=== PATIENT | female | born 1955 | race African-American/Black ===

== ENCOUNTER 2017-09-03 03:28 | Emergency (ER) | payer MEDICAID ==
[~2017-09-03] VITALS: Ht 162.6 cm; Wt 59.0 kg
[2017-09-03 03:42] VITALS: BP 127/77
[2017-09-03] MEDS ORDERED: Tylenol #3 tab (300mg/30mg) PO ONE (03:45)
[2017-09-03] MEDS ORDERED: IBUPROFEN600 MG ORAL (04:59)
[2017-09-03 05:30] VITALS: BP 130/78
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
[2017-09-03 05:50] VITALS: BP 130/78
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
== END 2017-09-03 05:50 | disposition home or self-care (01) ==
LOC: EDBD 03:28 → EMR 03:40
DX: R51 Headache (principal); M25.512 Pain in left shoulder; M25.532 Pain in left wrist; R07.9 Chest pain, unspecified; Y04.2XXA Assault by strike against or bumped into by another person, initial encounter; Y92.9 Unspecified place or not applicable; I10 Essential (primary) hypertension
CPT/HCPCS: 70450; 71045; 99284

== ENCOUNTER 2019-01-27 01:50 | Emergency (ER) | payer SELFPAY ==
[~2019-01-27] VITALS: Ht 167.6 cm; Wt 59.0 kg
[~2019-01-27 01:50] MED LIST: IBUPROFEN600 MG ORAL
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
[2019-01-27 02:22] VITALS: BP 118/68
--- NOTE | 2019-01-27 02:22 | NUR ---
ED Nurse Note: X ray at bedside.
--- NOTE | 2019-01-27 02:37 | NUR ---
ED Nurse Note: Snack food provided.
[2019-01-27 03:03] VITALS: BP 118/68
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
--- NOTE | 2019-01-27 12:15 | Diagnostic Imaging Report ---
Indication: Right leg pain after falling Technique: 2 views of the left tibia and fibula Comparison: none Findings: No acute fractures. No dislocations. No radiopaque foreign body. Impression: No acute process
--- NOTE | 2019-01-27 12:16 | Diagnostic Imaging Report ---
Indications: Right leg pain after falling Technique: Two views of the right femur Comparison: None Findings: No acute fractures. No dislocations. Joint spaces are preserved. Impression: Negative
[2019-01-27] MEDS ORDERED: UNOBMED (12:50)
== END 2019-01-27 03:19 | disposition home or self-care (01) ==
LOC: EDBD 01:50 → EMR 02:08
DX: M25.511 Pain in right shoulder (principal); M79.604 Pain in right leg; I10 Essential (primary) hypertension; Y04.8XXA Assault by other bodily force, initial encounter
CPT/HCPCS: 99284

== ENCOUNTER 2019-01-27 12:38 | Inpatient (IN) | payer MEDICAID ==
[~2019-01-27] VITALS: Ht 165.1 cm; Wt 62.2 kg
[2019-01-27 12:40] VITALS: BP 135/71
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
[2019-01-27] MEDS ORDERED: UNOBMED (12:50)
--- NOTE | 2019-01-27 13:10 | NUR ---
ED Nurse Note: labs sent and 22g IV inserted.
--- NOTE | 2019-01-27 13:18 | NUR ---
ED Nurse Note: pt sent for CT head.
[2019-01-27 13:50] LABS: ANION GAP 15 mmol/L (5-15); BLOOD UREA NITROGEN 13 mg/dL (7-18); CALCIUM 9.3 MG/DL (8.5-10.1); CARBON DIOXIDE 21 MMOL/L (21-32); CHLORIDE 100 MMOL/L (98-107); CREATININE 1.1 MG/DL (0.55-1.30); POTASSIUM 3.8 MMOL/L (3.5-5.1); SODIUM 136 MMOL/L (136-145)
[2019-01-27 13:54] LABS: BASOPHILS % (AUTO) 0.5 % (0.0-2.0); EOSINOPHILS % (AUTO) 0.4 % (0.0-3.0); HEMATOCRIT 38.5 % (37.0-47.0); HEMOGLOBIN 12.5 G/DL (12.0-16.0); LYMPHOCYTES % (AUTO) 37.5 % (20.0-45.0); MEAN CORPUSCULAR VOLUME 93 FL (80-99); MONOCYTES % (AUTO) 7.4 % (1.0-10.0); NEUTROPHILS % (AUTO) 54.2 % (45.0-75.0); PLATELET COUNT 278 K/UL (150-450); RED BLOOD COUNT 4.12 M/UL (4.20-5.40); RED CELL DISTRIBUTION WIDTH 13.9 % (11.6-14.8); WHITE BLOOD COUNT 4.8 K/UL (4.8-10.8)
[2019-01-27 13:56] VITALS: BP 133/73
--- NOTE | 2019-01-27 13:58 | Diagnostic Imaging Report ---
Indications: Altered mental status Technique: Spiral acquisitions obtained through the brain. Angled axial and coronal 5 x 5 mm slices were reconstructed. Total dose length product 1245.89 mGycm. CTDI vol(s) 70.38 mGy. Dose reduction achieved using automated exposure control Comparison: 09/03/2017 Findings: Again demonstrated is age-related enlargement of the ventricles and extra-axial CSF spaces. No acute intracranial hemorrhage or edema, mass effect, nor midline shift.. Normal petty-white differentiation. Visualized orbits are unremarkable. The mastoids are clear. Sinuses are clear. The calvarium is intact. No significant interim change Impression: Age-related volume loss Negative for acute intracranial bleed or mass effect The CT scanner at [facility] is accredited by the [employer] and the scans are performed using protocols designed to limit radiation exposure to as low as reasonably achievable to attain images of sufficient resolution adequate for diagnostic evaluation.
[2019-01-27 14:02] LABS: ALANINE AMINOTRANSFERASE 16 U/L (12-78); ALBUMIN 3.7 G/DL (3.4-5.0); ALBUMIN/GLOBULIN RATIO 0.8 (1.0-2.7); ALKALINE PHOSPHATASE 99 U/L (46-116); ASPARTATE AMINO TRANSFERASE 12 U/L (15-37); BILIRUBIN,TOTAL 0.4 MG/DL (0.2-1.0); CKMB 0.7 NG/ML (0.0-3.6); CREATINE KINASE 55 U/L (26-308)
[2019-01-27] MEDS ORDERED: levETIRAcetam 1,000mg/NS100ml 100 ML IVPB ONE (14:15)
[2019-01-27] MEDS ORDERED: LORazepam Inj 2mg/ml 1ml IV ONE (14:15)
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
[2019-01-27 15:59] VITALS: BP 139/76
--- NOTE | 2019-01-27 16:09 | NUR ---
ED Nurse Note: telephone report given to ELAINE Ro
[2019-01-27 16:30] VITALS: BP 144/65
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
--- NOTE | 2019-01-27 16:31 | Diagnostic Imaging Report ---
Indication: Shortness of breath Technique: One view of the chest Comparison: 09/03/2017 Findings: There is some atelectasis at the right lateral lung base. Lungs and pleural spaces are otherwise clear. The heart size is upper limits of normal. The aorta is tortuous and ectatic Impression: No acute process This agrees with the preliminary interpretation provided by the emergency room physician
--- NOTE | 2019-01-27 17:56 | NUR ---
NURSE NOTES: Received admission order from Dr. Sheldon. Will carry out the order now.
[2019-01-27] MEDS ORDERED: Acetaminophen 500mg (ES) tab ORAL PRN (18:00)
--- NOTE | 2019-01-27 18:28 | NUR ---
NURSE NOTES: The patient is stable without acute distress or shortness of breath. Will continue plan of care.
--- NOTE | 2019-01-27 18:49 | NUR ---
NURSE NOTES: Notified Dr. Sheldon regarding bradycardia to 42. The patient is sleeping without acute distress or shortness of breath. Will carry out the order as soon as receives it. Will continue plan of care.
--- NOTE | 2019-01-27 19:03 | NUR ---
NURSE NOTES: Notified Dr. Benson regarding bradycardia without symptom. Will carry out the order as soon as receives it. Will continue plan of care.
--- NOTE | 2019-01-27 19:24 | NUR ---
HAND-OFF: Report given to ELAINE Villalta. The patient is resting on the bed without acute distress or shortness of breath. The patient's bed in the lowest position, call light in reach, and fall, aspiration, and seizure precaution reinforced. IV site on right hand 22G intact and patent. Endorsed plan of care.
[2019-01-27 20:00] VITALS: BP 144/75
[2019-01-28] VITALS: BP 138/66
--- NOTE | 2019-01-28 01:45 | History and Physical Report ---
DATE OF ADMISSION: 01/27/2019 HISTORY OF PRESENT ILLNESS: The patient has bradycardia, recurrent seizures, and altered, postictal. Cannot get any history from this patient because he is postictal. PAST MEDICAL HISTORY: Apparently, the patient has a history of seizures. Unable to obtain past medical history. PAST SURGICAL HISTORY: Unable to obtain. MEDICATIONS: Unable to obtain. ALLERGIES: No known allergies. SOCIAL HISTORY: Unable to obtain. FAMILY HISTORY: Unable to obtain. REVIEW OF SYSTEMS: Unable to obtain. PHYSICAL EXAMINATION: VITAL SIGNS: Temperature is 98.2, pulse 76, blood pressure 139/72. HEENT: PERRLA. NECK: Supple. No lymphadenopathy. CHEST: Clear to auscultation. CARDIOVASCULAR: Regular rate and rhythm. No murmurs or extra sounds. GASTROINTESTINAL: Soft, nontender, and nondistended. No organomegaly. EXTREMITIES: No edema. Moves all four extremities. NEUROLOGIC: Cannot get the neurological exam, but grimaces to pain. The patient is postictal. Cannot get any history whatsoever at this point. LABORATORY DATA: WBC of 4.8, hemoglobin 12.5, and platelets of 278,000. Sodium 137, potassium of 3.8, BUN of 13, creatinine of 1.1, and glucose of 86. ASSESSMENT AND PLAN: 1. Altered mental status, postictal. 2. Recurrent seizure. 3. Bradycardia. I have asked Dr. Ring, Dr. Long, and Dr. Benson to see the patient for the dehydration and bradycardia as well as for the management of the recurrent seizures. Jairo Sheldon M.D. DR: KANU JOB#: [id number] CC:
[2019-01-28 04:00] VITALS: BP 142/69
[2019-01-28 07:16] LABS: BASOPHILS % (AUTO) 0.3 % (0.0-2.0); EOSINOPHILS % (AUTO) 0.5 % (0.0-3.0); HEMATOCRIT 34.5 % (37.0-47.0); HEMOGLOBIN 11.4 G/DL (12.0-16.0); LYMPHOCYTES % (AUTO) 32.2 % (20.0-45.0); MEAN CORPUSCULAR VOLUME 93 FL (80-99); MONOCYTES % (AUTO) 8.4 % (1.0-10.0); NEUTROPHILS % (AUTO) 58.6 % (45.0-75.0); PLATELET COUNT 231 K/UL (150-450); RED BLOOD COUNT 3.69 M/UL (4.20-5.40); RED CELL DISTRIBUTION WIDTH 13.9 % (11.6-14.8); WHITE BLOOD COUNT 4.4 K/UL (4.8-10.8)
--- NOTE | 2019-01-28 07:23 | NUR ---
HAND-OFF: Report given to Drea HENRY.
--- NOTE | 2019-01-28 07:49 | NUR ---
NURSE NOTES: Received patient from [facility]. Patient is awake and alert resting comfortably in bed. NO c/o pain or discomfort. Oxygen at 2 L/min via NC. denies SOB O
--- NOTE | 2019-01-28 07:52 | NUR ---
NURSE NOTES: Received patient from [facility]. Patient is awake and alert resting comfortably in bed. NO c/o pain or discomfort. Oxygen at 2 L/min via NC. denies SOB. child monitor in place Sinus lakshmi to Sinus Rhythm with rate of 42-66 Bpm. IVF 1/2 NS @ 65 ML/HR via . Fall and seizure precautions in place. Sire rails padded. SRX2 up for safety. Bed locked to lowest position. Alarm activated. Call frias within patients reach. will follow.
[2019-01-28 07:56] LABS: ALANINE AMINOTRANSFERASE 11 U/L (12-78); ALBUMIN 3.4 G/DL (3.4-5.0); ALBUMIN/GLOBULIN RATIO 0.9 (1.0-2.7); ALKALINE PHOSPHATASE 82 U/L (46-116); ANION GAP 9 mmol/L (5-15); ASPARTATE AMINO TRANSFERASE 10 U/L (15-37); BILIRUBIN,TOTAL 0.8 MG/DL (0.2-1.0); BLOOD UREA NITROGEN 9 mg/dL (7-18); CALCIUM 9.4 MG/DL (8.5-10.1); CARBON DIOXIDE 25 MMOL/L (21-32); CHLORIDE 107 MMOL/L (98-107); CREATININE 0.9 MG/DL (0.55-1.30); POTASSIUM 4.1 MMOL/L (3.5-5.1); SODIUM 141 MMOL/L (136-145)
[2019-01-28 08:24] VITALS: BP 160/87
--- NOTE | 2019-01-28 10:22 | Consultation ---
History of Present Illness General Chief Complaint: Seizure Present Illness Allergies: Coded Allergies: No Known Allergies (Unverified , 09/03/17) Medication History Scheduled PRN Ibuprofen* (Motrin*), 600 MG ORAL Q8H PRN for For Pain Miscellaneous Medications Unable to Obtain Medications (Unable To Obtain Meds), (Reported) Patient History Healthcare decision maker Resuscitation status Advanced Directive on File Physical Exam Last 24 Hour Vital Signs Date Time Temp Pulse Resp B/P (MAP) Pulse Ox O2 Delivery O2 Flow Rate FiO2 01/28/19 08:24 98.2 57 24 160/87 (111) 100 01/28/19 08:00 51 01/28/19 04:00 98.1 67 18 142/69 (93) 98 01/28/19 04:00 43 01/28/19 00:00 98.6 61 18 138/66 (90) 97 01/28/19 00:00 49 01/27/19 21:00 Nasal Cannula 2.0 01/27/19 20:00 54 01/27/19 20:00 97.7 54 16 144/75 (98) 100 54 01/27/19 18:07 Nasal Cannula 2.0 01/27/19 17:09 65 01/27/19 16:40 98.7 91 18 147/76 98 Nasal Cannula 2.0 01/27/19 16:30 97.5 74 20 144/65 (91) 100 74 01/27/19 15:59 98.2 76 21 139/76 100 01/27/19 13:56 98.2 78 17 133/73 99 Room Air 01/27/19 12:40 102 18 Room Air 01/27/19 12:40 98.5 91 18 135/71 99 Room Air 01/27/19 12:35 98.2 109 18 142/64 (90) 99 Room Air Intake and Output 01/27/19 01/28/19 19:00 07:00 Intake Total 1100 ml Balance 1100 ml Intake Oral 0 ml IV Total 1100 ml # Voids 5 Laboratory Tests Test 01/27/19 13:15 01/28/19 06:10 White Blood Count 4.8 K/UL (4.8-10.8) 4.4 K/UL (4.8-10.8) L Red Blood Count 4.12 M/UL (4.20-5.40) L 3.69 M/UL (4.20-5.40) L Hemoglobin 12.5 G/DL (12.0-16.0) 11.4 G/DL (12.0-16.0) L Hematocrit 38.5 % (37.0-47.0) 34.5 % (37.0-47.0) L Mean Corpuscular Volume 93 FL (80-99) 93 FL (80-99) Mean Corpuscular Hemoglobin 30.4 PG (27.0-31.0) 30.7 PG (27.0-31.0) Mean Corpuscular Hemoglobin Concent 32.6 G/DL (32.0-36.0) 32.9 G/DL (32.0-36.0) Red Cell Distribution Width 13.9 % (11.6-14.8) 13.9 % (11.6-14.8) Platelet Count 278 K/UL (150-450) 231 K/UL (150-450) Mean Platelet Volume 6.3 FL (6.5-10.1) L 6.5 FL (6.5-10.1) Neutrophils (%) (Auto) 54.2 % (45.0-75.0) 58.6 % (45.0-75.0) Lymphocytes (%) (Auto) 37.5 % (20.0-45.0) 32.2 % (20.0-45.0) Monocytes (%) (Auto) 7.4 % (1.0-10.0) 8.4 % (1.0-10.0) Eosinophils (%) (Auto) 0.4 % (0.0-3.0) 0.5 % (0.0-3.0) Basophils (%) (Auto) 0.5 % (0.0-2.0) 0.3 % (0.0-2.0) Sodium Level 136 MMOL/L (136-145) 141 MMOL/L (136-145) Potassium Level 3.8 MMOL/L (3.5-5.1) 4.1 MMOL/L (3.5-5.1) Chloride Level 100 MMOL/L (98-107) 107 MMOL/L (98-107) Carbon Dioxide Level 21 MMOL/L (21-32) 25 MMOL/L (21-32) Anion Gap 15 mmol/L (5-15) 9 mmol/L (5-15) Blood Urea Nitrogen 13 mg/dL (7-18) 9 mg/dL (7-18) Creatinine 1.1 MG/DL (0.55-1.30) 0.9 MG/DL (0.55-1.30) Estimat Glomerular Filtration Rate > 60 mL/min (>60) > 60 mL/min (>60) Glucose Level 86 MG/DL (74-106) 91 MG/DL (74-106) Calcium Level 9.3 MG/DL (8.5-10.1) 9.4 MG/DL (8.5-10.1) Total Bilirubin 0.4 MG/DL (0.2-1.0) 0.8 MG/DL (0.2-1.0) Aspartate Amino Transf (AST/SGOT) 12 U/L (15-37) L 10 U/L (15-37) L Alanine Aminotransferase (ALT/SGPT) 16 U/L (12-78) 11 U/L (12-78) L Alkaline Phosphatase 99 U/L (46-116) 82 U/L (46-116) Total Creatine Kinase 55 U/L (26-308) Creatine Kinase MB 0.7 NG/ML (0.0-3.6) Creatine Kinase MB Relative Index 1.2 Troponin I 0.000 ng/mL (0.000-0.056) 0.000 ng/mL (0.000-0.056) Pro-B-Type Natriuretic Peptide 103 pg/mL (0-125) Total Protein 8.3 G/DL (6.4-8.2) H 7.3 G/DL (6.4-8.2) Albumin 3.7 G/DL (3.4-5.0) 3.4 G/DL (3.4-5.0) Globulin 4.6 g/dL 3.9 g/dL Albumin/Globulin Ratio 0.8 (1.0-2.7) L 0.9 (1.0-2.7) L Lipase 76 U/L (73-393) Phenytoin (Dilantin) Level < 0.5 ug/mL (10-20) L Valproic Acid (Depakene) Level < 3 MCG/ML (50-100) L Thyroid Stimulating Hormone (TSH) 0.348 uiU/mL (0.358-3.740) Free Thyroxine 0.95 NG/DL (0.76-1.46) Height (Feet): 5 Height (Inches): 5.00 Weight (Pounds): 137 Medications Current Medications Medications (Trade) Dose Ordered Sig/Boris Route PRN Reason Start Time Stop Time Status Last Admin Dose Admin Acetaminophen (Tylenol) 500 mg Q4H PRN ORAL Mild Pain/Temp > 100.5 01/27/19 18:00 02/26/19 17:59 Sodium Chloride 1,000 ml @ 65 mls/hr [id number] IV 01/27/19 18:00 02/26/19 17:59 01/28/19 08:28 Assessment/Plan Assessment/Plan: Hematology Consultation Chief Complaint: Seizure RFC: Leukopenia and anemia eval DOS: 01/28/19 REQ MD: Tata Campos HPI 63y old male history of seizures. Patient apparently had a seizure yesterday. Patient was found by bystanders on the street and the paramedics was contacted. They brought the patient here for further evaluation. Patient appeared to be fairly somnolent but maintaining her airway. She is unable to provide much history other than that she has history of seizures. While patient was in the emergency department she had another episode of seizures. No other complaints are noted. Symptoms noted to be severe. No other associated signs symptoms no other modifying factors no other complaints. heme consulted for low wbc and anemia eval, was called by Dr. Campos. Coded Allergies: No Known Allergies (Unverified , 09/03/17) Patient History Past Medical History: DM, HTN, asthma Past Surgical History: none Pertinent Family History: none Social History: Denies: smoking, alcohol use, drug use Reviewed Nursing Documentation: PMH: Agreed; PSxH: Agreed Hx Hypertension: Yes Hx Asthma: Yes Hx Diabetes: Yes Review of Systems All Other Systems: negative except mentioned in HPI Physical Exam Vital Signs Gen: alert, moderate distress ENT: normal ENT inspection, dry membranes Neck: normal inspection, full range of motion, supple Pulm: normal inspection, lungs clear, normal breath sounds, no respiratory distress, no retraction, no wheezing CV: regular rate, rhythm, no edema GI: normal inspection, normal bowel sounds, non tender, soft Msk: normal inspection, back normal, normal range of motion Neuro: alert Labs: noted Imaging: noted Assessment and Recs: # Leukopenia with a wbc that is currently 4-5 range --> baseline is unknown, reviewed prior admissions, none noted --> wbc 4.8-->4.4 --> consider use of neupogen and anc goal >1500 --> meds have been reviewed, antiepileptics, okay to start --> monitor wbc, neuropenic precuations if anc <1500 # Anemia of chronic disease --> labs have been reviewed --> 12-->11 range --> w/u as needed if hgb lower # Status epilepticus/LOC --> as per neuro eval --> neuro eval # BradyCardia --> as per cards # Psych disorder --> per psych Time of note does not necessarily correspond to when patient was seen. Greatly appreciate consultation. Zoran Tong MD Jan 28, 2019 10:22
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
--- NOTE | 2019-01-28 11:30 | NUR ---
NURSE NOTES: Dr. Sheldon made aware patient has no PRN ativan ordered. stated to contact Dr. Ring for orders. Call out to Dr. Ring awaiting call back. will follow.
--- NOTE | 2019-01-28 12:08 | Diagnostic Imaging Report ---
Indication: Abdominal pain Technique: Bowles-scale and duplex images of the upper abdomen were obtained Comparison: none Findings: Gallbladder is unremarkable, without stones, wall thickening, nor pericholecystic fluid. Sonographic Gaston's sign is negative. Common bile duct measures 3 mm in diameter. No intrahepatic biliary ductal dilatation. Liver demonstrates normal echogenicity, no focal abnormality. Portal vein and hepatic veins are patent. Pancreas is unremarkable. Spleen is unremarkable. Left kidney measures 9.1 cm in length. Right kidney measures 9.6 cm length. Both kidneys demonstrate normal echogenicity. There is no hydronephrosis. No focal abnormality . Abdominal aorta is partially obscured by bowel gas, visualized portions are non-aneurysmal . Impression: Negative Note inability to visualize portions of the abdominal aorta
[2019-01-28] MEDS ORDERED: LORazepam Inj 2mg/ml 1ml IV PRN (12:30)
--- NOTE | 2019-01-28 12:30 | NUR ---
NURSE NOTES: received call back from Dr. Ring. Order received and carried out. said he will be in to see patient later today. Will follow
[2019-01-28 12:36] VITALS: BP 143/75
--- NOTE | 2019-01-28 14:51 | NUR ---
CASE MANAGEMENT:REVIEW 63 YR OLD FEMALE BIBA FROM STREET CC: SEIZURE SI: SEIZURE. AMS 98.2 109 18 142/64 99% ON RA IS: 1L NS BOLUS X1 IV KEPPRA IV ATIVAN CT HEAD CHEST XRAY : TO TELEMETRY INTERQUAL CRITERIA MET
[2019-01-28 16:50] VITALS: BP 139/66
--- NOTE | 2019-01-28 17:30 | Cardiac Electrophysiology PN ---
Subjective Subjective [id number] Objective Last 24 Hour Vital Signs Date Time Temp Pulse Resp B/P (MAP) Pulse Ox O2 Delivery O2 Flow Rate FiO2 01/28/19 16:50 98.1 60 22 139/66 (90) 97 01/28/19 12:36 98.1 44 20 143/75 (97) 100 01/28/19 12:00 48 01/28/19 09:00 Nasal Cannula 2.0 01/28/19 08:24 98.2 57 24 160/87 (111) 100 01/28/19 08:00 51 01/28/19 04:00 98.1 67 18 142/69 (93) 98 01/28/19 04:00 43 01/28/19 00:00 98.6 61 18 138/66 (90) 97 01/28/19 00:00 49 01/27/19 21:00 Nasal Cannula 2.0 01/27/19 20:00 54 01/27/19 20:00 97.7 54 16 144/75 (98) 100 54 01/27/19 18:07 Nasal Cannula 2.0 Intake and Output 01/27/19 01/28/19 19:00 07:00 Intake Total 1100 ml Balance 1100 ml Intake Oral 0 ml IV Total 1100 ml # Voids 5 Laboratory Tests Test 01/28/19 06:10 White Blood Count 4.4 K/UL (4.8-10.8) L Red Blood Count 3.69 M/UL (4.20-5.40) L Hemoglobin 11.4 G/DL (12.0-16.0) L Hematocrit 34.5 % (37.0-47.0) L Mean Corpuscular Volume 93 FL (80-99) Mean Corpuscular Hemoglobin 30.7 PG (27.0-31.0) Mean Corpuscular Hemoglobin Concent 32.9 G/DL (32.0-36.0) Red Cell Distribution Width 13.9 % (11.6-14.8) Platelet Count 231 K/UL (150-450) Mean Platelet Volume 6.5 FL (6.5-10.1) Neutrophils (%) (Auto) 58.6 % (45.0-75.0) Lymphocytes (%) (Auto) 32.2 % (20.0-45.0) Monocytes (%) (Auto) 8.4 % (1.0-10.0) Eosinophils (%) (Auto) 0.5 % (0.0-3.0) Basophils (%) (Auto) 0.3 % (0.0-2.0) Sodium Level 141 MMOL/L (136-145) Potassium Level 4.1 MMOL/L (3.5-5.1) Chloride Level 107 MMOL/L (98-107) Carbon Dioxide Level 25 MMOL/L (21-32) Anion Gap 9 mmol/L (5-15) Blood Urea Nitrogen 9 mg/dL (7-18) Creatinine 0.9 MG/DL (0.55-1.30) Estimat Glomerular Filtration Rate > 60 mL/min (>60) Glucose Level 91 MG/DL (74-106) Calcium Level 9.4 MG/DL (8.5-10.1) Total Bilirubin 0.8 MG/DL (0.2-1.0) Aspartate Amino Transf (AST/SGOT) 10 U/L (15-37) L Alanine Aminotransferase (ALT/SGPT) 11 U/L (12-78) L Alkaline Phosphatase 82 U/L (46-116) Troponin I 0.000 ng/mL (0.000-0.056) Total Protein 7.3 G/DL (6.4-8.2) Albumin 3.4 G/DL (3.4-5.0) Globulin 3.9 g/dL Albumin/Globulin Ratio 0.9 (1.0-2.7) L Thyroid Stimulating Hormone (TSH) 0.348 uiU/mL (0.358-3.740) Free Thyroxine 0.95 NG/DL (0.76-1.46) Hepatitis A IgM Antibody Pending Hepatitis B Surface Antigen Pending Hepatitis B Core IgM Antibody Pending Hepatitis C Antibody Pending HIV (1&2) Antibody Rapid Negative (NEGATIVE) Jareth Benson MD Jan 28, 2019 17:30
[2019-01-28 17:55] LABS: APPEARANCE,URINE CLEAR; BILIRUBIN, URINE NEGATIVE (NEGATIVE); GLUCOSE, URINE (UA) NEGATIVE (NEGATIVE); KETONES,URINE NEGATIVE (NEGATIVE); LEUKOCYTE ESTERASE ,URINE 1+ (NEGATIVE); NITRITE,URINE POSITIVE (NEGATIVE); PH,URINE 6.5 (4.5-8.0); PROTEIN,URINE NEGATIVE (NEGATIVE); UROBILINOGEN,URINE 1 MG/DL (0.0-1.0)
[2019-01-28 18:02] LABS: COLOR,URINE YELLOW
--- NOTE | 2019-01-28 18:39 | Cardiology Report ---
APPROVED REPORT EXAM: Two-dimensional and M-mode echocardiogram with Doppler and color Doppler. INDICATION Bradycardia M-Mode DIMENSIONS IVSd1.0 (0.7-1.1cm)Left Atrium (MM)3.7 (1.6-4.0cm) LVDd5.2 (3.5-5.6cm)Aortic Root3.4 (2.0-3.7cm) PWd1.1 (0.7-1.1cm)Aortic Cusp Exc.1.9 (1.5-2.0cm) LVDs3.6 (2.5-4.0cm) PWs1.2 cm Normal left ventricular chamber size, systolic function and wall motion. Left ventricular ejection fraction estimated to be 55-60%. No left ventricular hypertrophy. No evidence of pericardial effusion. All other cardiac chamber sizes are within normal limits. Focal aortic valve sclerosis with adequate cusp excursion. Thickened mitral valve leaflets with normal excursion. Mitral annulus and aortic root calcification. Pulmonic valve not well visualized. Normal tricuspid valve structure. IVC dilated at 2.7 cm with physiologic collapse, suggestive of increased RA pressure. A color flow and spectral Doppler study was performed and revealed: Moderate aortic regurgitation. Mild mitral regurgitation. Mitral inflow velocities indicates possible pseudo normalization pattern implying moderately elevated left atrial pressure (Grade II ). Mild tricuspid regurgitation. Tricuspid systolic velocities suggests peak right ventricular systolic pressure of 42mmHg, consistent with mild pulmonary hypertension. Trace pulmonic regurgitation present.
--- NOTE | 2019-01-28 18:54 | Cardiology Report ---
APPROVED REPORT EKG Measurement Heart [id number] ME [id number] Sinus rhythm with premature atrial complexes Possible Left atrial enlargement Borderline ECG
--- NOTE | 2019-01-28 19:19 | NUR ---
HAND-OFF: Report given to Troy Villalta. Patient stable. Plan of care endorsed.
--- NOTE | 2019-01-28 19:20 | NUR ---
NURSE NOTES: Received report from ELAINE Hallman. Patient in bed resting, no s/s respiratory distress noticed at this time. Patient on room air, AOx4, denies pain at this time. IV site asymptomatic, patent, intact. Bed in lowest position, side rails upx2, call light within reach. Will continue to monitor and follow plan of care.
[2019-01-28 20:00] VITALS: BP 130/65
--- NOTE | 2019-01-28 23:00 | Consultation ---
DATE OF CONSULTATION: 01/28/2019 NEUROLOGIC CONSULTATION CONSULTING PHYSICIAN: Iglesia Ring M.D. HISTORY OF PRESENT ILLNESS: This for the first or second [facility] admission for this 63-year-old right-handed woman with probable previous history of seizure disorder, although she denies it. She was brought here because of a generalized seizure. The patient was found by bystanders in the street. The paramedics were contacted. She was brought to [facility]. She was somnolent. The patient had a noncontrast CT scan of the brain, which revealed age-related volume loss. She had a chest x-ray, which was negative for acute disease. Abdominal x-ray today which was negative. The patient's laboratory on admission revealed a CBC which is basically normal on 01/27/2019. Today, she is found to have a mild anemia with a hemoglobin of 11.4 and a white count of 4400 with platelet count of 231,000. Toxicology screen was negative. Valproic acid was less than 3. Dilantin level was less than 0.5. Her chemistries are normal except for a low liver function tests and a low TSH of 0.348. The patient was not given any anticonvulsants. They called me this afternoon and I put her on lorazepam 0.2 mg IV p.r.n. seizure. The patient denies any seizures at this point. She also denies any headaches, strokes, memory loss, aphasia, confusion, loss of smell or taste. There is no history of diplopia, blurred vision, hearing loss, tinnitus, dizzy spells, gait disorder, dysarthria, dysphagia, muscle weakness, paresthesias, dysesthesias. She does have a history of hypertension and diabetes according to the medical record. She also has a history of asthma. There is no history of thyroid disease or heart disease or head injury. There is no family history of neurologic disease. ALLERGIES: None. HABITS: She drinks 2 beers at night. Has at least a 11-zzpf-cgbx history of smoking. No illegal drug use. SOCIAL HISTORY: She is unmarried. Has 3 children, probably in good health. SURGERIES: Three natural childbirths. FAMILY HISTORY: Unavailable. REVIEW OF SYSTEMS: She claims her appetite is good. Her weight is stable. PHYSICAL EXAMINATION: VITAL SIGNS: The blood pressure is 139/66, pulse is 60 and regular, temperature is 98.1 degrees. HEENT: She is edentulous. NECK: Supple. There is no tenderness. Carotids are +2. No bruits appreciated. LUNGS: She has decreased breath sounds bilaterally. CARDIOVASCULAR: PMI not felt. JVP is not visualized. The patient had a grade 1 systolic ejection murmur at the right second intercostal space, midclavicular line. ABDOMEN: Obese. Bowel sounds intact. No tenderness, masses, or organomegaly. BACK: There is no tenderness to percussion. EXTREMITIES: Peripheral pulses in the upper extremities are +2. Lower extremities could not be felt. NEUROLOGIC: MENTAL STATUS: Judgment could not be tested. Affect was appropriate to her mood. Memory, past memory was intact giving date of , mother's name. Immediate recall is 3/3 objects. Recent recall is 0/3 objects. Intellect, similarities cat and dog "have fur." ORIENTATION: Date, she did not know the month or the year. Place, she knew she was in the hospital. Did not know the name of the hospital. Person, she is oriented to person. Language function, spoken speech is minimally dysarthric without paraphasias. She could spell world backwards and forwards. CRANIAL NERVE EXAMINATION: CRANIAL NERVE II: Visual ferrer are probably intact to confrontation. Fundi were not visualized. CRANIAL NERVES III, IV, AND : Extraocular motility was full. Pupils were 3 mm, round, reactive to light. CRANIAL NERVE V: Facial and corneal sensation is intact. Pterygoid strength is 5/5. CRANIAL NERVE VII: Facial strength 5/5 bilaterally. CRANIAL NERVE VIII: Auditory acuity is intact bilaterally. CRANIAL NERVES IX AND X: Gag was probably intact bilaterally. CRANIAL NERVE XI: Sternocleidomastoid strength is 5/5. CRANIAL NERVE XII: Tongue protrudes in the midline. MUSCLE EXAMINATION: Muscle bulk is intact. Tone reveals paratonia. Strength is 5/5 proximally and distally without pronator drift. Reflexes are 0 in the upper and lower extremities with withdrawal testing for Babinski signs. COORDINATION: Pbxltd-hc-phxv is intact. Btzb-pp-bsvy testing reveals ataxia of the lower extremities with fmnd-ey-ckxv tremor. GAIT AND STATION: Not tested. SENSORY EXAMINATION: Pinprick is probably normal. Proprioception is at least partially intact. Vibration is decreased at least to her knees. Fine touch is difficult to evaluate. IMPRESSION: The patient has encephalopathy. The cause of which is unclear at this time. She probably is post ictal. She may have a cerebellar ataxia involving the lower extremities from alcohol or beers, although she denies drinking. As far as her seizures are concerned, the cause is unclear. It could be due to alcohol withdrawal seizures. We need more history. PLAN: 1. Add Keppra 500 mg. 2. Try to obtain more history. 3. Obtain serum magnesium. Thank you for this interesting case. Iglesia Ring MD DR: ANT JOB#: [id number] CC:
--- NOTE | 2019-01-28 23:00 | Progress Note ---
DATE: 01/28/2019 SUBJECTIVE: The patient is currently not having any seizure today. The patient is more alert, hemodynamically stable. ASSESSMENT AND PLAN: Recurrent seizures. The patient has no seizure today. Neurology has been consulted for seizure control and management. We will monitor the patient closely. Hemodynamically stable. Jairo Sheldon M.D. DR: KANU JOB#: [id number] CC:
[2019-01-29] VITALS: BP 151/89
--- NOTE | 2019-01-29 00:15 | Consultation ---
DATE OF CONSULTATION: 01/28/2019 CARDIOLOGY CONSULTATION CONSULTING PHYSICIAN: Jareth Benson M.D. REFERRING PHYSICIAN: Jairo Sheldon M.D. REASON FOR CONSULTATION: Tachycardia. HISTORY OF PRESENT ILLNESS: The patient is a 63-year-old lady with reported history of hypertension, diabetes, asthma, and had a seizure episode, was found by paramedics on the street. The patient was brought to [facility]. The patient at the time of my evaluation, she is alert, but denies any hypertension or diabetes. The patient denies any prior cardiac history and says that she does not take any medication at home. The patient, however, admits to drinking alcohol and using cocaine. On telemetry, the patient was mildly bradycardic with heart rate dropping to high 40s. Cardiology consultation was obtained for further evaluation. REVIEW OF SYSTEMS: Review of systems was negative other than what is mentioned in the history of present illness. PAST MEDICAL HISTORY: As mentioned above. FAMILY HISTORY: Noncontributory. SOCIAL HISTORY: She is homeless. Drinks alcohol and uses drugs. PHYSICAL EXAMINATION: VITAL SIGNS: Show blood pressure of 130/66, pulse was as low as 44, currently in the 60s, respirations 18, and she is afebrile. HEAD AND NECK: Shows no JVD. LUNGS: Clear. CARDIOVASCULAR: Shows regular S1 and S2 with no gallop or murmur. ABDOMEN: Soft. EXTREMITIES: No pitting edema. DIAGNOSTIC DATA: Her EKG shows sinus rhythm with occasional PACs. The telemetry strip showed with the heart rate dropping to 40s. LABORATORY AND DIAGNOSTIC DATA: Labs show white count of 4.4, hemoglobin 11.4, hematocrit 34.5, and platelet count of 231,000. Sodium 141, potassium 4.1, BUN of 9, and creatinine 0.9, and glucose of 91. Troponin negative x2. ASSESSMENT AND PLAN: 1. Bradycardia. The patient is already ruled out for myocardial infarction. EKG is nonischemic with EF of 55%, could be vagal as the patient today was most eventually sleeping. 2. History of hypertension. Blood pressure currently is stable. Off antihypertensives. 3. History of heavy alcohol use. 4. History of cocaine use. Urine toxicology screen will be ordered. Thank you very much, Dr. Sheldon, for allowing me to participate in the care of this patient. Please do not hesitate to contact me for any questions regarding my evaluation. Jareth Benson M.D. DR: ANJELICA JOB#: [id number] CC:
[2019-01-29 04:00] VITALS: BP 150/77
[2019-01-29 07:29] LABS: BASOPHILS % (AUTO) 0.4 % (0.0-2.0); EOSINOPHILS % (AUTO) 0.5 % (0.0-3.0); HEMATOCRIT 31.5 % (37.0-47.0); HEMOGLOBIN 10.6 G/DL (12.0-16.0); LYMPHOCYTES % (AUTO) 39.1 % (20.0-45.0); MEAN CORPUSCULAR VOLUME 92 FL (80-99); MONOCYTES % (AUTO) 9.9 % (1.0-10.0); NEUTROPHILS % (AUTO) 50.1 % (45.0-75.0); PLATELET COUNT 212 K/UL (150-450); RED BLOOD COUNT 3.42 M/UL (4.20-5.40); RED CELL DISTRIBUTION WIDTH 13.1 % (11.6-14.8); WHITE BLOOD COUNT 4.5 K/UL (4.8-10.8)
--- NOTE | 2019-01-29 07:30 | NUR ---
NURSE NOTES: Received report from Pawan/RN, Patient is awake, sitting up on bed, eating breakfast. No signs of acute distress/SOB noted at this time. Denies pain. Able to make needs know. Checked IV site, patent, no bleeding, or infiltration noted. Bed at lowest position, and locked. brakes on, side rails up x3, Call light and personal belonging within reach. Will continue plan of care.
--- NOTE | 2019-01-29 07:32 | NUR ---
HAND-OFF: Report given to Senait HENRY.
[2019-01-29 08:00] VITALS: BP 148/69
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
[2019-01-29 12:00] VITALS: BP 155/96
--- NOTE | 2019-01-29 12:51 | Hematology/Onc Progress Note ---
Assessment/Plan Assessment/Plan Assessment and Recs: # Leukopenia with a wbc that is currently 4-5 range --> us abd negative --> hiv negative, hep panel pending --> baseline is unknown, reviewed prior admissions, none noted --> wbc 4.8-->4.4 --> consider use of neupogen and anc goal >1500 --> meds have been reviewed, antiepileptics, okay to start --> monitor wbc, neutropenic precautions if anc <1500 # Anemia of chronic disease --> hgb currently > 10, no w/u required at this time --> hgb goal >7, transfuse prn --> hgb trend: 10.6 # Status epilepticus/LOC --> as per neuro eval --> neuro eval # BradyCardia --> as per cards # Psych disorder --> per psych Time of note does not necessarily correspond to when patient was seen. Greatly appreciate consultation. Subjective Allergies: Coded Allergies: No Known Allergies (Unverified , 09/03/17) Subjective 01/29: awake and alert, no acute events, hiv negative, hep panel pending, us abd negative Objective Objective Current Medications Medications (Trade) Dose Ordered Sig/Boris Route PRN Reason Start Time Stop Time Status Last Admin Dose Admin Acetaminophen (Tylenol) 500 mg Q4H PRN ORAL Mild Pain/Temp > 100.5 01/27/19 18:00 02/26/19 17:59 Divalproex Sodium (Depakote ER) 1,000 mg BEDTIME ORAL 01/29/19 21:00 02/28/19 20:59 Lorazepam (Ativan 2mg/ml 1ml) 2 mg Q4H PRN IV For Seizures 01/28/19 12:30 02/04/19 12:29 Sodium Chloride 1,000 ml @ 65 mls/hr [id number] IV 01/27/19 18:00 02/26/19 17:59 01/29/19 00:48 Last 24 Hour Vital Signs Date Time Temp Pulse Resp B/P (MAP) Pulse Ox O2 Delivery O2 Flow Rate FiO2 01/29/19 09:00 Nasal Cannula 2.0 01/29/19 08:00 98.5 63 18 148/69 (95) 98 01/29/19 08:00 51 01/29/19 04:00 68 01/29/19 04:00 98.6 55 18 150/77 (101) 97 01/29/19 00:00 98.4 55 18 151/89 (109) 98 01/29/19 00:00 68 01/28/19 21:00 Nasal Cannula 2.0 01/28/19 20:00 98.5 71 18 130/65 (86) 97 01/28/19 20:00 57 01/28/19 16:50 98.1 60 22 139/66 (90) 97 01/28/19 16:00 48 01/28/19 12:36 98.1 44 20 143/75 (97) 100 01/28/19 12:00 48 01/28/19 09:00 Nasal Cannula 2.0 01/28/19 08:24 98.2 57 24 160/87 (111) 100 01/28/19 08:00 51 01/28/19 04:00 98.1 67 18 142/69 (93) 98 01/28/19 04:00 43 01/28/19 00:00 98.6 61 18 138/66 (90) 97 01/28/19 00:00 49 01/27/19 21:00 Nasal Cannula 2.0 01/27/19 20:00 54 01/27/19 20:00 97.7 54 16 144/75 (98) 100 54 01/27/19 18:07 Nasal Cannula 2.0 01/27/19 17:09 65 01/27/19 16:40 98.7 91 18 147/76 98 Nasal Cannula 2.0 01/27/19 16:30 97.5 74 20 144/65 (91) 100 74 01/27/19 15:59 98.2 76 21 139/76 100 01/27/19 13:56 98.2 78 17 133/73 99 Room Air Intake and Output 01/28/19 01/29/19 19:00 07:00 Intake Total 320 ml 600 ml Balance 320 ml 600 ml Intake Oral 320 ml 600 ml # Voids 1 4 Labs Test 01/27/19 13:15 01/28/19 06:10 01/28/19 17:30 01/28/19 19:20 White Blood Count 4.8 K/UL (4.8-10.8) 4.4 K/UL (4.8-10.8) Red Blood Count 4.12 M/UL (4.20-5.40) 3.69 M/UL (4.20-5.40) Hemoglobin 12.5 G/DL (12.0-16.0) 11.4 G/DL (12.0-16.0) Hematocrit 38.5 % (37.0-47.0) 34.5 % (37.0-47.0) Mean Corpuscular Volume 93 FL (80-99) 93 FL (80-99) Mean Corpuscular Hemoglobin 30.4 PG (27.0-31.0) 30.7 PG (27.0-31.0) Mean Corpuscular Hemoglobin Concent 32.6 G/DL (32.0-36.0) 32.9 G/DL (32.0-36.0) Red Cell Distribution Width 13.9 % (11.6-14.8) 13.9 % (11.6-14.8) Platelet Count 278 K/UL (150-450) 231 K/UL (150-450) Mean Platelet Volume 6.3 FL (6.5-10.1) 6.5 FL (6.5-10.1) Neutrophils (%) (Auto) 54.2 % (45.0-75.0) 58.6 % (45.0-75.0) Lymphocytes (%) (Auto) 37.5 % (20.0-45.0) 32.2 % (20.0-45.0) Monocytes (%) (Auto) 7.4 % (1.0-10.0) 8.4 % (1.0-10.0) Eosinophils (%) (Auto) 0.4 % (0.0-3.0) 0.5 % (0.0-3.0) Basophils (%) (Auto) 0.5 % (0.0-2.0) 0.3 % (0.0-2.0) Sodium Level 136 MMOL/L (136-145) 141 MMOL/L (136-145) Potassium Level 3.8 MMOL/L (3.5-5.1) 4.1 MMOL/L (3.5-5.1) Chloride Level 100 MMOL/L (98-107) 107 MMOL/L (98-107) Carbon Dioxide Level 21 MMOL/L (21-32) 25 MMOL/L (21-32) Anion Gap 15 mmol/L (5-15) 9 mmol/L (5-15) Blood Urea Nitrogen 13 mg/dL (7-18) 9 mg/dL (7-18) Creatinine 1.1 MG/DL (0.55-1.30) 0.9 MG/DL (0.55-1.30) Estimat Glomerular Filtration Rate > 60 mL/min (>60) > 60 mL/min (>60) Glucose Level 86 MG/DL (74-106) 91 MG/DL (74-106) Calcium Level 9.3 MG/DL (8.5-10.1) 9.4 MG/DL (8.5-10.1) Total Bilirubin 0.4 MG/DL (0.2-1.0) 0.8 MG/DL (0.2-1.0) Aspartate Amino Transf (AST/SGOT) 12 U/L (15-37) 10 U/L (15-37) Alanine Aminotransferase (ALT/SGPT) 16 U/L (12-78) 11 U/L (12-78) Alkaline Phosphatase 99 U/L (46-116) 82 U/L (46-116) Total Creatine Kinase 55 U/L (26-308) Creatine Kinase MB 0.7 NG/ML (0.0-3.6) Creatine Kinase MB Relative Index 1.2 Troponin I 0.000 ng/mL (0.000-0.056) 0.000 ng/mL (0.000-0.056) Pro-B-Type Natriuretic Peptide 103 pg/mL (0-125) Total Protein 8.3 G/DL (6.4-8.2) 7.3 G/DL (6.4-8.2) Albumin 3.7 G/DL (3.4-5.0) 3.4 G/DL (3.4-5.0) Globulin 4.6 g/dL 3.9 g/dL Albumin/Globulin Ratio 0.8 (1.0-2.7) 0.9 (1.0-2.7) Lipase 76 U/L (73-393) Phenytoin (Dilantin) Level < 0.5 ug/mL (10-20) Valproic Acid (Depakene) Level < 3 MCG/ML (50-100) Thyroid Stimulating Hormone (TSH) 0.348 uiU/mL (0.358-3.740) Free Thyroxine 0.95 NG/DL (0.76-1.46) HIV (1&2) Antibody Rapid Negative (NEGATIVE) Urine Color Yellow Urine Appearance Clear Urine pH 6.5 (4.5-8.0) Urine Specific [place] 1.015 (1.005-1.035) Urine Protein Negative (NEGATIVE) Urine Glucose (UA) Negative (NEGATIVE) Urine Ketones Negative (NEGATIVE) Urine Blood Negative (NEGATIVE) Urine Nitrite Positive (NEGATIVE) Urine Bilirubin Negative (NEGATIVE) Urine Urobilinogen 1 MG/DL (0.0-1.0) Urine Leukocyte Esterase 1+ (NEGATIVE) Urine RBC 0-2 /HPF (0 - 2) Urine WBC 2-4 /HPF (0 - 2) Urine Squamous Epithelial Cells Few /LPF (NONE/OCC) Urine Amorphous Sediment Few /LPF (NONE) Urine Bacteria Moderate /HPF (NONE) Urine Opiates Screen Negative (NEGATIVE) Urine Barbiturates Screen Negative (NEGATIVE) Phencyclidine (PCP) Screen Negative (NEGATIVE) Urine Amphetamines Screen Negative (NEGATIVE) Urine Benzodiazepines Screen Negative (NEGATIVE) Urine Cocaine Screen Negative (NEGATIVE) Urine Marijuana (THC) Screen Negative (NEGATIVE) Magnesium Level 1.9 MG/DL (1.8-2.4) Test 01/29/19 06:10 White Blood Count 4.5 K/UL (4.8-10.8) Red Blood Count 3.42 M/UL (4.20-5.40) Hemoglobin 10.6 G/DL (12.0-16.0) Hematocrit 31.5 % (37.0-47.0) Mean Corpuscular Volume 92 FL (80-99) Mean Corpuscular Hemoglobin 31.1 PG (27.0-31.0) Mean Corpuscular Hemoglobin Concent 33.8 G/DL (32.0-36.0) Red Cell Distribution Width 13.1 % (11.6-14.8) Platelet Count 212 K/UL (150-450) Mean Platelet Volume 6.4 FL (6.5-10.1) Neutrophils (%) (Auto) 50.1 % (45.0-75.0) Lymphocytes (%) (Auto) 39.1 % (20.0-45.0) Monocytes (%) (Auto) 9.9 % (1.0-10.0) Eosinophils (%) (Auto) 0.5 % (0.0-3.0) Basophils (%) (Auto) 0.4 % (0.0-2.0) Thyroid Stimulating Hormone (TSH) 0.430 uiU/mL (0.358-3.740) Free Thyroxine 0.84 NG/DL (0.76-1.46) Micro Microbiology Date/Time Source Procedure Growth Status 01/28/19 17:30 Urine,Clean Catch Urine Culture - Preliminary Resulted Height (Feet): 5 Height (Inches): 5.00 Weight (Pounds): 137 Objective Physical Exam Vital Signs Gen: alert, moderate distress ENT: normal ENT inspection, dry membranes Neck: normal inspection, full range of motion, supple Pulm: normal inspection, lungs clear, normal breath sounds, no respiratory distress, no retraction, no wheezing CV: regular rate, rhythm, no edema GI: normal inspection, normal bowel sounds, non tender, soft Msk: normal inspection, back normal, normal range of motion Neuro: alert Zoran Tong MD Jan 29, 2019 12:51
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
[2019-01-29] MEDS ORDERED: HydrALAZINE 25mg tab ORAL PRN (15:30)
--- NOTE | 2019-01-29 15:40 | NUR ---
CASE MANAGEMENT:REVIEW 01/29/19 SI: SEIZURE. 98.2 59 20 155/96 100% ON 2L/NC H/H-10.6/31.5 IS: DEPAKOTE PO QHS HYDRALAZINE PO Q8HR PEPCID PO BID : TELEMETRY STATUS
[2019-01-29 16:00] VITALS: BP 122/81
--- NOTE | 2019-01-29 16:45 | Electroencephalogram ---
DATE OF PROCEDURE: 01/28/2019 REQUESTING PHYSICIAN: Jairo Sheldon M.D. READING PHYSICIAN: Kings Piper M.D. PROCEDURE PERFORMED: EEG. HISTORY: This EEG was performed on a 63-year-old lady with a history of multiple medical problems including seizures. The patient was hospitalized following a seizure. The purpose of this EEG was to evaluate the patient for ongoing ictal or interictal phenomena. TECHNICAL NOTE: This EEG was performed on a [employer] [facility] with electrodes placed on the scalp according to the international 10-20 system. [id number] and [id number] montages were used. The EEG was technically satisfactory and was performed in the awake and drowsy states. OBSERVATIONS: In the best awake state, the background activity consisted of 8 to 8.5 hertz posteriorly predominant well-developed alpha waveforms, which attenuated on eye opening. Drowsiness was characterized by dissolution of the alpha rhythm and the appearance of slow frequencies in the 5 to 6 hertz theta range. Parts of the tracing were marked by EMG movement and electrode artifact. No definite focal abnormalities or epileptiform discharges were seen. IMPRESSION: Normal awake and drowsy EEG. COMMENT: Normal EEG, does not rule out a seizure disorder. Kings Piper M.D. DR: LESIA JOB#: [id number] CC:
[2019-01-29] MEDS: Docusate 100mg cap ORAL SCH (17:27)
--- NOTE | 2019-01-29 17:56 | Cardiac Electrophysiology PN ---
Assessment/Plan Assessment/Plan 1. Bradycardia. The patient is already ruled out for myocardial infarction. EKG is nonischemic with EF of 55%, could be vagal 2. History of hypertension. On Hydralazine 25 po q 8hr 3. History of heavy alcohol use. 4. History of cocaine use. Urine toxicology screen was negative Subjective Subjective No CP or SOB. Had mild bradycardia. Objective Last 24 Hour Vital Signs Date Time Temp Pulse Resp B/P (MAP) Pulse Ox O2 Delivery O2 Flow Rate FiO2 01/29/19 12:00 49 01/29/19 12:00 98.2 59 20 155/96 (115) 100 01/29/19 09:00 Nasal Cannula 2.0 01/29/19 08:00 98.5 63 18 148/69 (95) 98 01/29/19 08:00 51 01/29/19 04:00 68 01/29/19 04:00 98.6 55 18 150/77 (101) 97 01/29/19 00:00 98.4 55 18 151/89 (109) 98 01/29/19 00:00 68 01/28/19 21:00 Nasal Cannula 2.0 01/28/19 20:00 98.5 71 18 130/65 (86) 97 01/28/19 20:00 57 Intake and Output 01/28/19 01/29/19 19:00 07:00 Intake Total 320 ml 600 ml Balance 320 ml 600 ml Intake Oral 320 ml 600 ml # Voids 1 4 Laboratory Tests Test 01/28/19 19:20 01/29/19 06:10 Magnesium Level 1.9 MG/DL (1.8-2.4) White Blood Count 4.5 K/UL (4.8-10.8) L Red Blood Count 3.42 M/UL (4.20-5.40) L Hemoglobin 10.6 G/DL (12.0-16.0) L Hematocrit 31.5 % (37.0-47.0) L Mean Corpuscular Volume 92 FL (80-99) Mean Corpuscular Hemoglobin 31.1 PG (27.0-31.0) H Mean Corpuscular Hemoglobin Concent 33.8 G/DL (32.0-36.0) Red Cell Distribution Width 13.1 % (11.6-14.8) Platelet Count 212 K/UL (150-450) Mean Platelet Volume 6.4 FL (6.5-10.1) L Neutrophils (%) (Auto) 50.1 % (45.0-75.0) Lymphocytes (%) (Auto) 39.1 % (20.0-45.0) Monocytes (%) (Auto) 9.9 % (1.0-10.0) Eosinophils (%) (Auto) 0.5 % (0.0-3.0) Basophils (%) (Auto) 0.4 % (0.0-2.0) Thyroid Stimulating Hormone (TSH) 0.430 uiU/mL (0.358-3.740) Free Thyroxine 0.84 NG/DL (0.76-1.46) Microbiology Date/Time Source Procedure Growth Status 01/28/19 17:30 Urine,Clean Catch Urine Culture - Preliminary Resulted Objective HEAD AND NECK: No JVD. LUNGS: Clear. CARDIOVASCULAR: Regular S1 and S2 with no gallop or murmur. ABDOMEN: Soft. EXTREMITIES: No pitting edema. Jareth Benson MD Jan 29, 2019 17:56
--- NOTE | 2019-01-29 19:44 | NUR ---
HAND-OFF: Report given to /RN, Patient is lying semi-wayne, resting comfortably, no acute distress. Endorsed plan of care.
[2019-01-29 20:00] VITALS: BP 137/78
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
[2019-01-29] MEDS ORDERED: Depakote ER 500mg tab ORAL SCH (21:00)
[2019-01-29] MEDS: HydrALAZINE 25mg tab ORAL SCH (21:18)
[2019-01-30] VITALS: BP 133/79
[2019-01-30 04:00] VITALS: BP 131/65
[2019-01-30] MEDS: HydrALAZINE 25mg tab ORAL SCH (05:39)
--- NOTE | 2019-01-30 07:10 | Cardiac Electrophysiology PN ---
Assessment/Plan Assessment/Plan 1. Bradycardia. Already ruled out for myocardial infarction. EKG is nonischemic with EF of 55%, could be vagal 2. History of hypertension. On Hydralazine 25 po q 8hr 3. History of heavy alcohol use. 4. History of cocaine use. Urine toxicology screen was negative DW RN Subjective Subjective No CP or SOB. No more bradycardia.overnight except at 4 am 46 Objective Last 24 Hour Vital Signs Date Time Temp Pulse Resp B/P (MAP) Pulse Ox O2 Delivery O2 Flow Rate FiO2 01/30/19 05:39 131/65 01/30/19 04:00 46 01/30/19 04:00 97.1 70 18 131/65 (87) 97 01/30/19 00:00 65 01/30/19 00:00 97.5 60 18 133/79 (97) 98 01/29/19 21:18 137/78 01/29/19 20:28 Nasal Cannula 2.0 01/29/19 20:00 97.9 63 18 137/78 (97) 98 01/29/19 20:00 71 01/29/19 16:00 43 01/29/19 16:00 99.0 58 18 122/81 (95) 99 01/29/19 12:00 49 01/29/19 12:00 98.2 59 20 155/96 (115) 100 01/29/19 09:00 Nasal Cannula 2.0 01/29/19 08:00 98.5 63 18 148/69 (95) 98 01/29/19 08:00 51 Intake and Output 01/29/19 01/30/19 18:59 06:59 Intake Total 600 ml 250 ml Output Total 300 ml Balance 300 ml 250 ml Intake Oral 600 ml 250 ml Output Urine Total 300 ml # Voids 2 3 Laboratory Tests Test 01/30/19 05:57 White Blood Count Pending Red Blood Count Pending Hemoglobin Pending Hematocrit Pending Mean Corpuscular Volume Pending Mean Corpuscular Hemoglobin Pending Mean Corpuscular Hemoglobin Concent Pending Red Cell Distribution Width Pending Platelet Count Pending Mean Platelet Volume Pending Neutrophils (%) (Auto) Pending Lymphocytes (%) (Auto) Pending Monocytes (%) (Auto) Pending Eosinophils (%) (Auto) Pending Basophils (%) (Auto) Pending Sodium Level Pending Potassium Level Pending Chloride Level Pending Carbon Dioxide Level Pending Blood Urea Nitrogen Pending Creatinine Pending Estimat Glomerular Filtration Rate Pending Glucose Level Pending Hemoglobin A1c Pending Uric Acid Pending Calcium Level Pending Phosphorus Level Pending Magnesium Level Pending Iron Level Pending Unsaturated Iron Binding Pending Ferritin Pending Total Bilirubin Pending Gamma Glutamyl Transpeptidase Pending Aspartate Amino Transf (AST/SGOT) Pending Alanine Aminotransferase (ALT/SGPT) Pending Alkaline Phosphatase Pending C-Reactive Protein, Quantitative Pending Pro-B-Type Natriuretic Peptide Pending Total Protein Pending Albumin Pending Globulin Pending Vitamin B12 Level Pending Folate Pending Valproic Acid (Depakene) Level Pending Microbiology Date/Time Source Procedure Growth Status 01/28/19 17:30 Urine,Clean Catch Urine Culture - Preliminary Resulted Objective HEAD AND NECK: No JVD. LUNGS: Clear. CARDIOVASCULAR: Regular S1 and S2 with no gallop or murmur. ABDOMEN: Soft. EXTREMITIES: No pitting edema. Jareth Benson MD Jan 30, 2019 07:10
[2019-01-30 07:15] LABS: BASOPHILS % (AUTO) 0.5 % (0.0-2.0); EOSINOPHILS % (AUTO) 0.6 % (0.0-3.0); HEMATOCRIT 34.4 % (37.0-47.0); HEMOGLOBIN 11.4 G/DL (12.0-16.0); LYMPHOCYTES % (AUTO) 32.6 % (20.0-45.0); MEAN CORPUSCULAR VOLUME 92 FL (80-99); MONOCYTES % (AUTO) 8.7 % (1.0-10.0); NEUTROPHILS % (AUTO) 57.6 % (45.0-75.0); PLATELET COUNT 233 K/UL (150-450); RED BLOOD COUNT 3.72 M/UL (4.20-5.40); RED CELL DISTRIBUTION WIDTH 13.6 % (11.6-14.8); WHITE BLOOD COUNT 5.1 K/UL (4.8-10.8)
--- NOTE | 2019-01-30 07:40 | NUR ---
NURSE NOTES: Received report from Rosario HENRY. Patient sitting in bed and awake and eating breakfast. No c/o pain. No seizure aura noted. IV site in RFA 22G SL intact and asymptomatic. Bed in its lowest position and locked and side rails x2 up for safety. Will continue to plan of care.
[2019-01-30 07:53] LABS: ALANINE AMINOTRANSFERASE 10 U/L (12-78); ALBUMIN 3.5 G/DL (3.4-5.0); ALBUMIN/GLOBULIN RATIO 0.9 (1.0-2.7); ALKALINE PHOSPHATASE 83 U/L (46-116); ANION GAP 10 mmol/L (5-15); ASPARTATE AMINO TRANSFERASE 8 U/L (15-37); BILIRUBIN,TOTAL 0.4 MG/DL (0.2-1.0); BLOOD UREA NITROGEN 16 mg/dL (7-18); CALCIUM 9.1 MG/DL (8.5-10.1); CARBON DIOXIDE 27 MMOL/L (21-32); CHLORIDE 104 MMOL/L (98-107); FERRITIN 86 NG/ML (8-388); GAMMA GLUTAMYL TRANSPEPTIDASE 20 U/L (5-85); PHOSPHORUS 4.3 MG/DL (2.5-4.9); POTASSIUM 3.9 MMOL/L (3.5-5.1); SODIUM 141 MMOL/L (136-145)
[2019-01-30 08:00] VITALS: BP 167/74
[2019-01-30 08:32] LABS: % IRON SATURATION 9 % (15-50); IRON 31 ug/dL (50-175); TOTAL IRON BINDING CAPACITY 333 ug/dL (250-450)
--- NOTE | 2019-01-30 09:03 | Nephrology Progress Note ---
Assessment/Plan Problem List: (1) HTN (hypertension) (2) Diabetes mellitus (3) Seizure disorder Assessment Sz disorder Anemia HTN DM ? UTI Plan Anemia damon check mag and lytes and depakote level BP meds and for PRNs given urine c/s Subjective ROS Limited/Unobtainable: No Objective Objective Last 24 Hour Vital Signs Date Time Temp Pulse Resp B/P (MAP) Pulse Ox O2 Delivery O2 Flow Rate FiO2 01/30/19 08:00 97.0 60 18 167/74 (105) 98 01/30/19 05:39 131/65 01/30/19 04:00 46 01/30/19 04:00 97.1 70 18 131/65 (87) 97 01/30/19 00:00 65 01/30/19 00:00 97.5 60 18 133/79 (97) 98 01/29/19 21:18 137/78 01/29/19 20:28 Nasal Cannula 2.0 01/29/19 20:00 97.9 63 18 137/78 (97) 98 01/29/19 20:00 71 01/29/19 16:00 43 01/29/19 16:00 99.0 58 18 122/81 (95) 99 01/29/19 12:00 49 01/29/19 12:00 98.2 59 20 155/96 (115) 100 Intake and Output 01/29/19 01/30/19 18:59 06:59 Intake Total 600 ml 250 ml Output Total 300 ml Balance 300 ml 250 ml Intake Oral 600 ml 250 ml Output Urine Total 300 ml # Voids 2 3 Laboratory Tests 01/30/19 05:57: White Blood Count 5.1, Red Blood Count 3.72L, Hemoglobin 11.4L, Hematocrit 34.4L , Mean Corpuscular Volume 92, Mean Corpuscular Hemoglobin 30.6, Mean Corpuscular Hemoglobin Concent 33.2, Red Cell Distribution Width 13.6, Platelet Count 233, Mean Platelet Volume 6.5, Neutrophils (%) (Auto) 57.6, Lymphocytes (% ) (Auto) 32.6, Monocytes (%) (Auto) 8.7, Eosinophils (%) (Auto) 0.6, Basophils ( %) (Auto) 0.5, Sodium Level 141, Potassium Level 3.9, Chloride Level 104, Carbon Dioxide Level 27, Anion Gap 10, Blood Urea Nitrogen 16, Creatinine 1.0, Estimat Glomerular Filtration Rate > 60, Glucose Level 115H, Hemoglobin A1c 6.1H , Uric Acid 5.2, Calcium Level 9.1, Phosphorus Level 4.3, Magnesium Level 1.9, Iron Level 31L, Total Iron Binding Capacity 333, Percent Iron Saturation 9L, Unsaturated Iron Binding 302, Ferritin 86, Total Bilirubin 0.4, Gamma Glutamyl Transpeptidase 20, Aspartate Amino Transf (AST/SGOT) 8L, Alanine Aminotransferase (ALT/SGPT) 10L, Alkaline Phosphatase 83, C-Reactive Protein, Quantitative < 0.4, Pro-B-Type Natriuretic Peptide 1141H, Total Protein 7.5, Albumin 3.5, Globulin 4.0, Albumin/Globulin Ratio 0.9L, Vitamin B12 Level 317, Folate 25.5, Valproic Acid (Depakene) Level 39L Height (Feet): 5 Height (Inches): 5.00 Weight (Pounds): 137 General Appearance: no apparent distress Cardiovascular: regular rhythm Respiratory/Chest: lungs clear Abdomen: soft Objective no change Levy Reynolds MD Jan 30, 2019 09:03
[2019-01-30] MEDS: Docusate 100mg cap ORAL SCH (09:11)
--- NOTE | 2019-01-30 09:15 | Hematology/Onc Progress Note ---
Assessment/Plan Assessment/Plan Assessment and Recs: # Leukopenia with a wbc that is currently 4-5 range --> us abd negative --> hiv negative, hep panel PENDing --> baseline is unknown, reviewed prior admissions, none noted --> wbc 4.8-->4.4-->5 --> consider use of neupogen and anc goal >1500 --> meds have been reviewed, antiepileptics, okay to start --> monitor wbc, neutropenic precautions if anc <1500 # Anemia of chronic disease --> hgb currently > 10, no w/u required at this time --> hgb goal >7, transfuse prn --> hgb trend: 10.6-->11.4 # Status epilepticus/LOC --> as per neuro eval --> neuro eval # BradyCardia --> as per cards # Psych disorder --> per psych Time of note does not necessarily correspond to when patient was seen. Greatly appreciate consultation. Subjective Constitutional: Denies: no symptoms, chills, fever, malaise, weakness, other HEENT: Denies: no symptoms, eye pain, blurred vision, tearing, double vision, ear pain, ear discharge, nose pain, nose congestion, throat pain, throat swelling, mouth pain, mouth swelling, other Cardiovascular: Denies: no symptoms, chest pain, edema, irregular heart rate, lightheadedness, palpitations, syncope, other Respiratory: Denies: no symptoms, cough, shortness of breath, SOB with excertion, SOB at rest, sputum, wheezing, other Gastrointestinal/Abdominal: Denies: no symptoms, abdomen distended, abdominal pain, black stools, tarry stools, blood in stool, constipated, diarrhea, difficulty swallowing, nausea, poor appetite, poor fluid intake, rectal bleeding , vomiting, other Genitourinary: Denies: no symptoms, burning, discharge, frequency, flank pain, hematuria, incontinence, pain, urgency, other Endocrine: Denies: no symptoms, excessive sweating, flushing, intolerance to cold, intolerance to heat, increased hunger, increased thirst, increased urine, unexplained weight gain, unexplained weight loss, other Allergies: Coded Allergies: No Known Allergies (Unverified , 09/03/17) Subjective 01/29: awake and alert, no acute events, hiv negative, hep panel pending, us abd negative 01/30: awake, no events, labs reviewed, no bleeding or chills, wbc better Objective Objective Current Medications Medications (Trade) Dose Ordered Sig/Boris Route PRN Reason Start Time Stop Time Status Last Admin Dose Admin Acetaminophen (Tylenol) 500 mg Q4H PRN ORAL Mild Pain/Temp > 100.5 01/27/19 18:00 02/26/19 17:59 Divalproex Sodium (Depakote ER) 1,000 mg BEDTIME ORAL 01/29/19 21:00 02/28/19 20:59 01/29/19 21:18 Docusate Sodium (Colace) 100 mg THREE TIMES A DAY ORAL 01/29/19 18:00 02/28/19 17:59 01/30/19 09:11 Famotidine (Pepcid) 20 mg BID ORAL 01/29/19 18:00 02/28/19 17:59 01/30/19 09:11 Hydralazine HCl (Apresoline) 25 mg Q4H PRN ORAL bp over 160 syst 01/29/19 15:30 02/28/19 15:29 Hydralazine HCl (Apresoline) 25 mg Q8HR ORAL 01/29/19 22:00 02/28/19 21:59 01/30/19 05:39 Lorazepam (Ativan 2mg/ml 1ml) 2 mg Q4H PRN IV For Seizures 01/28/19 12:30 02/04/19 12:29 Last 24 Hour Vital Signs Date Time Temp Pulse Resp B/P (MAP) Pulse Ox O2 Delivery O2 Flow Rate FiO2 01/30/19 08:00 97.0 60 18 167/74 (105) 98 01/30/19 05:39 131/65 01/30/19 04:00 46 01/30/19 04:00 97.1 70 18 131/65 (87) 97 01/30/19 00:00 65 01/30/19 00:00 97.5 60 18 133/79 (97) 98 01/29/19 21:18 137/78 01/29/19 20:28 Nasal Cannula 2.0 01/29/19 20:00 97.9 63 18 137/78 (97) 98 01/29/19 20:00 71 01/29/19 16:00 43 01/29/19 16:00 99.0 58 18 122/81 (95) 99 01/29/19 12:00 49 01/29/19 12:00 98.2 59 20 155/96 (115) 100 01/29/19 09:00 Nasal Cannula 2.0 01/29/19 08:00 98.5 63 18 148/69 (95) 98 01/29/19 08:00 51 01/29/19 04:00 68 01/29/19 04:00 98.6 55 18 150/77 (101) 97 01/29/19 00:00 98.4 55 18 151/89 (109) 98 01/29/19 00:00 68 01/28/19 21:00 Nasal Cannula 2.0 01/28/19 20:00 98.5 71 18 130/65 (86) 97 01/28/19 20:00 57 01/28/19 16:50 98.1 60 22 139/66 (90) 97 01/28/19 16:00 48 01/28/19 12:36 98.1 44 20 143/75 (97) 100 01/28/19 12:00 48 Intake and Output 01/29/19 01/30/19 18:59 06:59 Intake Total 600 ml 250 ml Output Total 300 ml Balance 300 ml 250 ml Intake Oral 600 ml 250 ml Output Urine Total 300 ml # Voids 2 3 Labs Test 01/27/19 13:15 01/28/19 06:10 01/28/19 17:30 01/28/19 19:20 White Blood Count 4.8 K/UL (4.8-10.8) 4.4 K/UL (4.8-10.8) Red Blood Count 4.12 M/UL (4.20-5.40) 3.69 M/UL (4.20-5.40) Hemoglobin 12.5 G/DL (12.0-16.0) 11.4 G/DL (12.0-16.0) Hematocrit 38.5 % (37.0-47.0) 34.5 % (37.0-47.0) Mean Corpuscular Volume 93 FL (80-99) 93 FL (80-99) Mean Corpuscular Hemoglobin 30.4 PG (27.0-31.0) 30.7 PG (27.0-31.0) Mean Corpuscular Hemoglobin Concent 32.6 G/DL (32.0-36.0) 32.9 G/DL (32.0-36.0) Red Cell Distribution Width 13.9 % (11.6-14.8) 13.9 % (11.6-14.8) Platelet Count 278 K/UL (150-450) 231 K/UL (150-450) Mean Platelet Volume 6.3 FL (6.5-10.1) 6.5 FL (6.5-10.1) Neutrophils (%) (Auto) 54.2 % (45.0-75.0) 58.6 % (45.0-75.0) Lymphocytes (%) (Auto) 37.5 % (20.0-45.0) 32.2 % (20.0-45.0) Monocytes (%) (Auto) 7.4 % (1.0-10.0) 8.4 % (1.0-10.0) Eosinophils (%) (Auto) 0.4 % (0.0-3.0) 0.5 % (0.0-3.0) Basophils (%) (Auto) 0.5 % (0.0-2.0) 0.3 % (0.0-2.0) Sodium Level 136 MMOL/L (136-145) 141 MMOL/L (136-145) Potassium Level 3.8 MMOL/L (3.5-5.1) 4.1 MMOL/L (3.5-5.1) Chloride Level 100 MMOL/L (98-107) 107 MMOL/L (98-107) Carbon Dioxide Level 21 MMOL/L (21-32) 25 MMOL/L (21-32) Anion Gap 15 mmol/L (5-15) 9 mmol/L (5-15) Blood Urea Nitrogen 13 mg/dL (7-18) 9 mg/dL (7-18) Creatinine 1.1 MG/DL (0.55-1.30) 0.9 MG/DL (0.55-1.30) Estimat Glomerular Filtration Rate > 60 mL/min (>60) > 60 mL/min (>60) Glucose Level 86 MG/DL (74-106) 91 MG/DL (74-106) Calcium Level 9.3 MG/DL (8.5-10.1) 9.4 MG/DL (8.5-10.1) Total Bilirubin 0.4 MG/DL (0.2-1.0) 0.8 MG/DL (0.2-1.0) Aspartate Amino Transf (AST/SGOT) 12 U/L (15-37) 10 U/L (15-37) Alanine Aminotransferase (ALT/SGPT) 16 U/L (12-78) 11 U/L (12-78) Alkaline Phosphatase 99 U/L (46-116) 82 U/L (46-116) Total Creatine Kinase 55 U/L (26-308) Creatine Kinase MB 0.7 NG/ML (0.0-3.6) Creatine Kinase MB Relative Index 1.2 Troponin I 0.000 ng/mL (0.000-0.056) 0.000 ng/mL (0.000-0.056) Pro-B-Type Natriuretic Peptide 103 pg/mL (0-125) Total Protein 8.3 G/DL (6.4-8.2) 7.3 G/DL (6.4-8.2) Albumin 3.7 G/DL (3.4-5.0) 3.4 G/DL (3.4-5.0) Globulin 4.6 g/dL 3.9 g/dL Albumin/Globulin Ratio 0.8 (1.0-2.7) 0.9 (1.0-2.7) Lipase 76 U/L (73-393) Phenytoin (Dilantin) Level < 0.5 ug/mL (10-20) Valproic Acid (Depakene) Level < 3 MCG/ML (50-100) Thyroid Stimulating Hormone (TSH) 0.348 uiU/mL (0.358-3.740) Free Thyroxine 0.95 NG/DL (0.76-1.46) HIV (1&2) Antibody Rapid Negative (NEGATIVE) Urine Color Yellow Urine Appearance Clear Urine pH 6.5 (4.5-8.0) Urine Specific [place] 1.015 (1.005-1.035) Urine Protein Negative (NEGATIVE) Urine Glucose (UA) Negative (NEGATIVE) Urine Ketones Negative (NEGATIVE) Urine Blood Negative (NEGATIVE) Urine Nitrite Positive (NEGATIVE) Urine Bilirubin Negative (NEGATIVE) Urine Urobilinogen 1 MG/DL (0.0-1.0) Urine Leukocyte Esterase 1+ (NEGATIVE) Urine RBC 0-2 /HPF (0 - 2) Urine WBC 2-4 /HPF (0 - 2) Urine Squamous Epithelial Cells Few /LPF (NONE/OCC) Urine Amorphous Sediment Few /LPF (NONE) Urine Bacteria Moderate /HPF (NONE) Urine Opiates Screen Negative (NEGATIVE) Urine Barbiturates Screen Negative (NEGATIVE) Phencyclidine (PCP) Screen Negative (NEGATIVE) Urine Amphetamines Screen Negative (NEGATIVE) Urine Benzodiazepines Screen Negative (NEGATIVE) Urine Cocaine Screen Negative (NEGATIVE) Urine Marijuana (THC) Screen Negative (NEGATIVE) Magnesium Level 1.9 MG/DL (1.8-2.4) Test 01/29/19 06:10 01/30/19 05:57 White Blood Count 4.5 K/UL (4.8-10.8) 5.1 K/UL (4.8-10.8) Red Blood Count 3.42 M/UL (4.20-5.40) 3.72 M/UL (4.20-5.40) Hemoglobin 10.6 G/DL (12.0-16.0) 11.4 G/DL (12.0-16.0) Hematocrit 31.5 % (37.0-47.0) 34.4 % (37.0-47.0) Mean Corpuscular Volume 92 FL (80-99) 92 FL (80-99) Mean Corpuscular Hemoglobin 31.1 PG (27.0-31.0) 30.6 PG (27.0-31.0) Mean Corpuscular Hemoglobin Concent 33.8 G/DL (32.0-36.0) 33.2 G/DL (32.0-36.0) Red Cell Distribution Width 13.1 % (11.6-14.8) 13.6 % (11.6-14.8) Platelet Count 212 K/UL (150-450) 233 K/UL (150-450) Mean Platelet Volume 6.4 FL (6.5-10.1) 6.5 FL (6.5-10.1) Neutrophils (%) (Auto) 50.1 % (45.0-75.0) 57.6 % (45.0-75.0) Lymphocytes (%) (Auto) 39.1 % (20.0-45.0) 32.6 % (20.0-45.0) Monocytes (%) (Auto) 9.9 % (1.0-10.0) 8.7 % (1.0-10.0) Eosinophils (%) (Auto) 0.5 % (0.0-3.0) 0.6 % (0.0-3.0) Basophils (%) (Auto) 0.4 % (0.0-2.0) 0.5 % (0.0-2.0) Thyroid Stimulating Hormone (TSH) 0.430 uiU/mL (0.358-3.740) Free Thyroxine 0.84 NG/DL (0.76-1.46) Sodium Level 141 MMOL/L (136-145) Potassium Level 3.9 MMOL/L (3.5-5.1) Chloride Level 104 MMOL/L (98-107) Carbon Dioxide Level 27 MMOL/L (21-32) Anion Gap 10 mmol/L (5-15) Blood Urea Nitrogen 16 mg/dL (7-18) Creatinine 1.0 MG/DL (0.55-1.30) Estimat Glomerular Filtration Rate > 60 mL/min (>60) Glucose Level 115 MG/DL (74-106) Hemoglobin A1c 6.1 % (4.3-6.0) Uric Acid 5.2 MG/DL (2.6-7.2) Calcium Level 9.1 MG/DL (8.5-10.1) Phosphorus Level 4.3 MG/DL (2.5-4.9) Magnesium Level 1.9 MG/DL (1.8-2.4) Iron Level 31 ug/dL (50-175) Total Iron Binding Capacity 333 ug/dL (250-450) Percent Iron Saturation 9 % (15-50) Unsaturated Iron Binding 302 ug/dL (112-346) Ferritin 86 NG/ML (8-388) Total Bilirubin 0.4 MG/DL (0.2-1.0) Gamma Glutamyl Transpeptidase 20 U/L (5-85) Aspartate Amino Transf (AST/SGOT) 8 U/L (15-37) Alanine Aminotransferase (ALT/SGPT) 10 U/L (12-78) Alkaline Phosphatase 83 U/L (46-116) C-Reactive Protein, Quantitative < 0.4 mg/dL (0.00-0.90) Pro-B-Type Natriuretic Peptide 1141 pg/mL (0-125) Total Protein 7.5 G/DL (6.4-8.2) Albumin 3.5 G/DL (3.4-5.0) Globulin 4.0 g/dL Albumin/Globulin Ratio 0.9 (1.0-2.7) Vitamin B12 Level 317 PG/ML (193-986) Folate 25.5 NG/ML (8.6-58.9) Valproic Acid (Depakene) Level 39 MCG/ML (50-100) Height (Feet): 5 Height (Inches): 5.00 Weight (Pounds): 137 Objective Physical Exam Vital Signs Gen: alert, moderate distress ENT: normal ENT inspection, dry membranes Neck: normal inspection, full range of motion, supple Pulm: normal inspection, lungs clear, normal breath sounds, no respiratory distress, no retraction, no wheezing CV: regular rate, rhythm, no edema GI: normal inspection, normal bowel sounds, non tender, soft Msk: normal inspection, back normal, normal range of motion Neuro: alert Zoran Tong MD Jan 30, 2019 09:15
--- NOTE | 2019-01-30 09:50 | NUR ---
NURSE NOTES: The patient removed IV line and livestock yard attendant by herself without asking the nurse to do it. No sings of bleeding noted from IV removed site.
--- NOTE | 2019-01-30 10:00 | NUR ---
NURSE NOTES: Dr. Benson and Dr. Ring's office number and address given to the patient and asked the patient if the RN make the follow the appt for the MD but she refused.
--- NOTE | 2019-01-30 10:00 | NUR ---
NURSE NOTES: The patient seen by homeless landcare officer for discharge placement. and three token given to the patient
--- NOTE | 2019-01-30 10:03 | NUR ---
Social Work This Sw received a consult due to patient is homeless, substance abuse. This Sw met with patient who explains she wants to leave immediately this AM, planning to return to the street. Patient explains she receives Social Security but does not want placement into Board/Care, wanting to keep the money for other expenses. Patient stating she drinks alcohol, but denied having a problem with this, refused any substance abuse programs at this time. Patient remains alert/oriented x4, making her own decisions and remains independent with all ADLs. No other needs or concerns present at this time, patient denied any suicidal ideations with this SW. This SW advised Shared Housing and provided list of homeless programs and shelters, along with provided two bus tokens (per patient request) for transportation. Patient has adequate clothing and shoes, received a breakfast tray.
--- NOTE | 2019-01-30 10:10 | NUR ---
Homeless Discharge: Patient is being discharged from medical care. Awake, alert and oriented x3. After care instructions, including referral to community resources were given. Patient verbalized understanding of After care instructions; at this time patient does not request medications, equipment or placement. Patient signed patient consent in the medical record for patient destination upon discharge and three token given to the patient after she spoke to homeless lawn caretaker. All medical devices such as ID band were removed. Patient ambulated out with all personal belongings with steady gait.
--- NOTE | 2019-01-30 22:15 | Progress Note ---
DATE: 01/30/2019 SUBJECTIVE: The patient is in bed. No behavior issues. The patient is confused and disoriented. Poor insight. Poor memory. MENTAL STATUS EXAMINATION: The patient is confused. Mood is neutral. Affect is flat. Thought process, there is a paucity of thought content. Thought content, no suicidal or homicidal ideation. ASSESSMENT: 1. Cognitive impairment. 2. Anxiety disorder. PLAN: 1. We will continue current care. 2. Provide the patient with reality orientation and supportive therapy. Luana Long M.D. DR: LEIGH JOB#: [id number] CC:
--- NOTE | 2019-02-01 14:31 | Discharge Summary ---
Discharge Summary Discharge Summary _ DATE OF ADMISSION: 01/27/2019 DATE OF DISCHARGE: 01/30/2019 DISCHARGED BY: Dr. Jairo Campos CONSULTANTS: Dr. Luana Ring [facility] COURSE: Patient is a 63-year-old female, with history of seizures, apparently had a breakthrough seizure. Patient was unable to provide much history. She was found by bystanders on the streets. [employer] was called. While at the emergency department, she had another episode of seizure. She was given Ativan. She was loaded with Keppra. There was no leukocytosis. Hemoglobin and hematocrit were stable. Toxicology screen was negative. Dilantin level less than 0.5. Valproic acid less than 3. Head CT negative. Chest x-ray did not show any acute disease. She was then admitted for evaluation of altered mental status and seizures. Neurologist was consulted. Patient with encephalopathy. Cause unclear. Patient probably post ictal. 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 Seizures also could be related to alcohol withdrawal seizures, although needs more history. She was given Keppra 500 mg. While on the monitor, she was noted to have bradycardia with heart rate dropping to high 40s. EKG nonischemic. Troponin negative x2. DC was ruled out. Echocardiogram showed EF 55%. Bradycardia via could be vagal. She had a history of cocaine use. Urine toxicology was negative. Psychiatric evaluation was done. Patient answered " I do not know" to most of the questions. She was also agitated and had memory impairment. She was diagnosed to have acute metabolic encephalopathy. She was given Depakote ER 1000 mg nightly that would also cover for seizures. She had leukopenia and stable anemia. Iron level 31. Ferritin 86. Blood levels were monitored. Blood pressure was elevated. Patient was given hydralazine 25 mg every 8 hours. Urine culture showed growth of mixed gram-positive organisms. EEG done showed normal awake and drowsy EEG. There were no further seizure breakthrough. Bradycardia improved. She was eventually cleared for discharge. FINAL DIAGNOSES: Status epilepticus with breakthrough seizure Acute metabolic encephalopathy Anxiety disorder Leukopenia Anemia of chronic disease Bradycardia Hypertension Diabetes mellitus Possible UTI History of heavy alcohol use History of cocaine use DISPOSITION: The treating physician assessed that the patient is medically stable for discharge to an outstretched disposition. DISCHARGE MEDICATIONS: Refer to Discharge Medication List. DISCHARGE INSTRUCTIONS: Follow-up in a week. I have been assigned to complete a discharge summary on this account, I was not involved with the patient's management.--JACLYN Bradshaw Jacqueline Robles NP Feb 01, 2019 14:31
== END 2019-01-30 10:10 | disposition home or self-care (01) | DRG 53 ==
LOC: EDBD 12:38 → EDSEX 12:38 → EMR 13:20 → 2E 13:24 → EDBEDREQ 15:25
DX: G40.901 Epilepsy, unspecified, not intractable, with status epilepticus (principal); G93.41 Metabolic encephalopathy; F41.9 Anxiety disorder, unspecified; D63.8 Anemia in other chronic diseases classified elsewhere; R00.1 Bradycardia, unspecified; I10 Essential (primary) hypertension; E11.9 Type 2 diabetes mellitus without complications; N39.0 Urinary tract infection, site not specified; F10.11 Alcohol abuse, in remission; F14.11 Cocaine abuse, in remission; F99 Mental disorder, not otherwise specified
CPT/HCPCS: 36415; 70450; 71045; 76700; 80053; 80164; 80185; 80307; 81001; 82550; 82553; 82607; 82728; 82746; 82977; 83036; 83540; 83550; 83690; 83735; 83880; 84100; 84439; 84443; 84484; 84550; 85025; 86140; 86703; 86705; 86709; 86803; 87086; 87340; 92610; 93005; 93306; 95819; 96361; 96374; 96375; 99291

== ENCOUNTER 2019-04-26 19:35 | Emergency (ER) | payer MEDICAID ==
[~2019-04-26] VITALS: Ht 157.5 cm; Wt 59.0 kg
[~2019-04-26 19:35] MED LIST changes: +UNOBMED
--- NOTE | 2019-04-26 19:35 | NUR ---
ED Nurse Note: PT STATES SHE DOES NOT HAVE ANY MEDICAL HISTORY BUT ACCORDING TO PT'S MEDICAL HX PER EMS REPORT, PT HAS HX HIV, HTN, ASTHMA, EMPHYSEMA, DM, SEIZURE.
--- NOTE | 2019-04-26 19:38 | NUR ---
ED Nurse Note: pt presents to ED via EMS arrival c/o L sided body pain. pt reports that she woke up with the pain and is unsure how it started. pt denies any injury or trauma. pt rates the pain a 10/10 which is exacerbated by movement, and palpation. pt denies any other symptoms at this time. Addendum: 04/26/19 at 1944 by TIFFANIE pt brought in by [id number]
[2019-04-26 19:41] VITALS: BP 136/84
--- NOTE | 2019-04-26 20:55 | Emergency Room Report ---
History of Present Illness General Chief Complaint: Pain Source: EMS (Melodie Durán) Present Illness HPI 63-year-old female with history of an unknown psychiatric disorder, who has been to [facility] multiple times brought in by paramedics complaining of left- sided body pain that started earlier today. According to the paramedics patient was outside of [facility], denies any fall or injury, and complained of a 10 out of 10 pain. Upon my physical examination patient reports that she did fall at home and that is the place where she got picked up from by the paramedics. Patient does not appear to be a good historian. Denies intake of any medication on daily basis. Denies pain radiation, tingling or numbness. Denies chest pain, headache, head injury, loss of consciousness, palpitation, and other associated symptoms. (Melodie Durán) Allergies: Coded Allergies: No Known Allergies (Unverified , 09/03/17) Patient History Past Medical History: see triage record Past Surgical History: unable to obtain Pertinent Family History: unable to obtain Now: No Immunizations: UTD Reviewed Nursing Documentation: PMH: Agreed; PSxH: Agreed (Melodie Durán) Nursing Documentation-PMH Past Medical History: No History, Except For Hx Hypertension: Yes Hx Asthma: Yes Hx Diabetes: Yes Hx Cancer: No Hx Gastrointestinal Problems: No Hx Neurological Problems: Yes Hx Seizures: Yes (Melodie Durán) Review of Systems All Other Systems: negative except mentioned in HPI (Melodie Durán) Physical Exam Vital Signs Date Time Temp Pulse Resp B/P (MAP) Pulse Ox O2 Delivery O2 Flow Rate FiO2 04/26/19 19:33 98.6 82 16 136/84 (101) 98 Room Air Sp02 EP Interpretation: reviewed, normal General Appearance: alert, GCS 15, non-toxic, mild distress, other - Disheveled Head: normocephalic, atraumatic Eyes: bilateral eye normal inspection, bilateral eye PERRL ENT: hearing grossly normal, normal pharynx, no angioedema, normal voice Neck: full range of motion, supple, thyroid normal, no meningismus, no bony tend, supple/symm/no masses Respiratory: chest non-tender, lungs clear, normal breath sounds, no wheezing, speaking full sentences Cardiovascular #1: regular rate, rhythm, no edema, no murmur Cardiovascular #2: 2+ carotid (R), 2+ carotid (L), 2+ radial (R), 2+ radial (L) , 2+ dorsalis pedis (R), 2+ dorsalis pedis (L) Gastrointestinal: normal bowel sounds, non tender, soft, non-distended, no guarding, no rebound Rectal: deferred Genitourinary: no CVA tenderness Musculoskeletal: back normal, normal range of motion, no calf tenderness, pelvis stable, gait/station normal, non-tender Neurologic: alert, motor strength/tone normal, oriented x3, sensory intact, responsive, speech normal Psychiatric: judgement/insight normal, memory normal, mood/affect normal, no suicidal/homicidal ideation Skin: no rash Lymphatic: no adenopathy (Melodie Durán) Medical Decision Making PA Attestation All my diagnosis and treatment plans were reviewed ad discussed with my supervising physician Dr. Tovar (Melodie Durán) Diagnostic Impression: Primary Impression: Pain of left side of body Additional Impressions: Contusion Alcohol abuse ER Course 63-year-old female with history of an unknown psychiatric disorder, who has been to [facility] multiple times brought in by paramedics complaining of left- sided body pain that started earlier today. According to the paramedics patient was outside of [facility], denies any fall or injury, and complained of a 10 out of 10 pain. Upon my physical examination patient reports that she did fall at home and that is the place where she got picked up from by the paramedics. Patient does not appear to be a good historian. Denies intake of any medication on daily basis. Denies pain radiation, tingling or numbness. Denies chest pain, headache, head injury, loss of consciousness, palpitation, and other associated symptoms. Ddx considered but are not limited to: Shoulder sprain versus contusion versus fracture, rib fracture with pneumothorax versus rib fracture without pneumothorax, rib contusion, hip fracture versus contusion Vital signs: are WNL, pt. is afebrile H&PE are most consistent with multiple trauma ORDERS: Left shoulder x-ray, left rib series with 1 view of PA chest, left hip x -ray ED INTERVENTIONS: Abdifatah Hull signed off the patient to Dr. Fay at 8:45pm (Melodie Durán) ER Course Please refer to the note for the initial history exam and presentation Patient's imaging studies have been done patient was allowed to rest X-ray imaging does not show any acute process Blood work is also within normal limits patient's alcohol level is elevated After prolonged observation in the ER patient reports that she feels significantly improved Reports that she has a home and would like to go home Patient is ambulatory has a walker and is disposition for close outpatient follow-up Labs Test 04/26/19 20:50 White Blood Count 5.5 K/UL (4.8-10.8) Red Blood Count 4.01 M/UL (4.20-5.40) Hemoglobin 13.5 G/DL (12.0-16.0) Hematocrit 35.8 % (37.0-47.0) Mean Corpuscular Volume 89 FL (80-99) Mean Corpuscular Hemoglobin 33.6 PG (27.0-31.0) Mean Corpuscular Hemoglobin Concent 37.6 G/DL (32.0-36.0) Red Cell Distribution Width 10.9 % (11.6-14.8) Platelet Count 234 K/UL (150-450) Mean Platelet Volume 6.0 FL (6.5-10.1) Neutrophils (%) (Auto) 70.6 % (45.0-75.0) Lymphocytes (%) (Auto) 20.2 % (20.0-45.0) Monocytes (%) (Auto) 8.4 % (1.0-10.0) Eosinophils (%) (Auto) 0.3 % (0.0-3.0) Basophils (%) (Auto) 0.5 % (0.0-2.0) Sodium Level 134 MMOL/L (136-145) Potassium Level 4.4 MMOL/L (3.5-5.1) Chloride Level 97 MMOL/L (98-107) Carbon Dioxide Level 29 MMOL/L (21-32) Anion Gap 8 mmol/L (5-15) Blood Urea Nitrogen 14 mg/dL (7-18) Creatinine 0.9 MG/DL (0.55-1.30) Estimat Glomerular Filtration Rate > 60 mL/min (>60) Glucose Level 90 MG/DL (74-106) Calcium Level 8.9 MG/DL (8.5-10.1) Total Bilirubin 0.3 MG/DL (0.2-1.0) Aspartate Amino Transf (AST/SGOT) 23 U/L (15-37) Alanine Aminotransferase (ALT/SGPT) 26 U/L (12-78) Alkaline Phosphatase 106 U/L (46-116) Total Protein 8.5 G/DL (6.4-8.2) Albumin 4.0 G/DL (3.4-5.0) Globulin 4.5 g/dL Albumin/Globulin Ratio 0.9 (1.0-2.7) Salicylates Level 6.4 ug/mL (2.8-20) Acetaminophen Level < 2 MCG/ML (10-30) Serum Alcohol 203 mg/dL (Jairo Fay DO) Other X-Ray Diagnostic Results Other X-Ray Diagnostic Results #1: X-Ray ordered: left Shoulder # of Views/Limited Vs Complete: 3 View Indication: Pain EP Interpretation: Yes Interpretation: no dislocation, no soft tissue swelling, no fractures Impression: No acute disease Electronically Signed by: Jairo Fay DO Other X-Ray Diagnostic Results #2: X-Ray ordered: left hip # of Views/Limited Vs Complete: 3 View Indication: Pain EP Interpretation: Yes Interpretation: no dislocation, no soft tissue swelling, no fractures Impression: No acute disease Electronically Signed by: Jairo Fay DO Other X-Ray Diagnostic Results #3: X-Ray ordered: left rib cage # of Views/Limited Vs Complete: 3 View Indication: Pain EP Interpretation: Yes Interpretation: no dislocation, no soft tissue swelling, no fractures Impression: No acute disease - Previous healing fractures Electronically Signed by: Jairo Fay DO (Jairo Fay DO) Last Vital Signs Date Time Temp Pulse Resp B/P (MAP) Pulse Ox O2 Delivery O2 Flow Rate FiO2 04/26/19 19:41 98.6 88 16 136/84 98 Room Air (Melodie Durán) Status: improved (Jairo Fay DO) Disposition: HOME, SELF-CARE Condition: Improved Additional Instructions: Patient is provided with the discharge instructions notified to follow up with primary doctor in the next 2-3 days otherwise return to the er with any worsening symptoms. Please note that this report is being documented using DRAGON technology. This can lead to erroneous entry secondary to incorrect interpretation by the dictating instrument. Melodie Durán Apr 26, 2019 20:55 Jairo Fay DO Apr 28, 2019 07:02
[2019-04-26 21:13] LABS: BASOPHILS % (AUTO) 0.5 % (0.0-2.0); EOSINOPHILS % (AUTO) 0.3 % (0.0-3.0); HEMATOCRIT 35.8 % (37.0-47.0); HEMOGLOBIN 13.5 G/DL (12.0-16.0); LYMPHOCYTES % (AUTO) 20.2 % (20.0-45.0); MEAN CORPUSCULAR VOLUME 89 FL (80-99); MONOCYTES % (AUTO) 8.4 % (1.0-10.0); NEUTROPHILS % (AUTO) 70.6 % (45.0-75.0); PLATELET COUNT 234 K/UL (150-450); RED BLOOD COUNT 4.01 M/UL (4.20-5.40); RED CELL DISTRIBUTION WIDTH 10.9 % (11.6-14.8); WHITE BLOOD COUNT 5.5 K/UL (4.8-10.8)
[2019-04-26 21:31] LABS: ANION GAP 8 mmol/L (5-15); BLOOD UREA NITROGEN 14 mg/dL (7-18); CALCIUM 8.9 MG/DL (8.5-10.1); CARBON DIOXIDE 29 MMOL/L (21-32); CHLORIDE 97 MMOL/L (98-107); CREATININE 0.9 MG/DL (0.55-1.30); POTASSIUM 4.4 MMOL/L (3.5-5.1); SODIUM 134 MMOL/L (136-145)
[2019-04-26 21:35] LABS: ALANINE AMINOTRANSFERASE 26 U/L (12-78); ALBUMIN/GLOBULIN RATIO 0.9 (1.0-2.7); ALKALINE PHOSPHATASE 106 U/L (46-116); ASPARTATE AMINO TRANSFERASE 23 U/L (15-37); BILIRUBIN,TOTAL 0.3 MG/DL (0.2-1.0)
[2019-04-26 23:39] VITALS: BP 138/86
[2019-04-27 03:31] VITALS: BP 135/73
--- NOTE | 2019-04-27 03:32 | NUR ---
ED Nurse Note: pt unable to provide urine sample. ERMD aware
[2019-04-27 05:45] VITALS: BP 135/73
--- NOTE | 2019-04-27 05:56 | NUR ---
ER DISCHARGE NOTE: Patient is cleared to be discharged per ERMD, pt is aox4, on room air, with stable vital signs. pt was given dc instructions, pt was able to verbalize understanding, pt id band removed without complications. pt is able to ambulate with steady gait and provided "[address] [place] [address] in [place]" as her home address. pt took all belongings.
--- NOTE | 2019-04-27 11:23 | Diagnostic Imaging Report ---
Indication: Trauma, pain Technique: 2 views of the left hip, one view of the pelvis Comparison: none Findings: No acute fractures. No dislocations. The joint spaces are preserved. The bones are somewhat osteopenic Impression: Negative Note, however, that in elderly osteoporotic patients, nondisplaced hip or pelvic fractures can easily be occult. Consider cross-sectional imaging for further evaluation if there is high clinical suspicion
--- NOTE | 2019-04-27 11:25 | Diagnostic Imaging Report ---
Indication: Trauma, pain Technique: One view of the chest, 2 views of the left ribs Comparison: none Findings: There are old healed fracture deformities of the anterolateral third, fourth, fifth, and 6 ribs. There is also an old healed fracture deformity of the posterior lateral left 10th rib. Chest radiograph demonstrates no evidence of pneumothorax. A band of atelectasis or scarring is seen in the left midlung. Lungs and pleural spaces are otherwise clear. The heart size is normal. Is only noted are multiple old healed right rib fracture deformities. The aorta is tortuous and ectatic Impression: Evidence of multiple old healed rib fractures. No acute bony trauma No acute cardiopulmonary process
--- NOTE | 2019-04-27 13:21 | Diagnostic Imaging Report ---
Indication: Trauma, pain Technique: 3 views of the left shoulder Comparison: none Findings: No acute fractures. No dislocations. The joint spaces are preserved. The bones are osteoporotic. Impression: No acute bony trauma
[2019-04-28] MEDS ORDERED: TYLENOL EXTRA500 MG ORAL (05:22)
== END 2019-04-27 05:45 | disposition home or self-care (01) ==
LOC: EDBD 19:35 → EMR 21:25
DX: R52 Pain, unspecified (principal); F10.10 Alcohol abuse, uncomplicated; I10 Essential (primary) hypertension; E11.9 Type 2 diabetes mellitus without complications; G40.909 Epilepsy, unspecified, not intractable, without status epilepticus; T14.8XXA Other injury of unspecified body region, initial encounter; X58.XXXA Exposure to other specified factors, initial encounter; Y92.9 Unspecified place or not applicable
CPT/HCPCS: 36415; 71101; 73030; 73502; 80053; 85025; G0480; G0481; Z7502; 99284

== ENCOUNTER 2019-04-28 00:51 | Emergency (ER) | payer MEDICAID ==
[~2019-04-28] VITALS: Ht 167.6 cm; Wt 59.0 kg
--- NOTE | 2019-04-28 01:00 | NUR ---
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 PATIENT ALERT ORIENTED X4. NAD. VSS.
[2019-04-28 01:10] VITALS: BP 127/87
[2019-04-28] MEDS ORDERED: Acetaminophen 500mg (ES) tab PO ONE (01:30)
--- NOTE | 2019-04-28 02:00 | NUR ---
ED Nurse Note: PATIENT MEDICATED TOLERATED WELL. PATIENT RESTING COMFORTABLY IN BED WITH NO ACUTE DISTRESS. PROVIDED PATIENT WITH WARM BLANKETS AND REPOSITIONED FOR COMFORT.
[2019-04-28 04:00] VITALS: BP 119/76
--- NOTE | 2019-04-28 04:14 | NUR ---
ED Nurse Note: IMAGING AT BEDSIDE.
--- NOTE | 2019-04-28 04:35 | Emergency Room Report ---
History of Present Illness General Chief Complaint: Pain Source: Patient Present Illness HPI 63-year-old female presents ED for evaluation. Complaining of right shoulder right hip pain. States that she slipped and fell in her house today about 1 hour ago. States the floor was wet. Complaining of right shoulder and right hip pain. Dull, 8 out of 10, nonradiating. Is able to bear weight. Denies any other injuries. No other aggravating relieving factors. Denies any other associated symptoms Allergies: Coded Allergies: No Known Allergies (Unverified , 09/03/17) Patient History Past Medical History: DM, HTN, asthma, seizures Pertinent Family History: none Social History: Denies: smoking, alcohol use, drug use Now: No Immunizations: UTD Reviewed Nursing Documentation: PMH: Agreed; PSxH: Agreed Nursing Documentation-PMH Past Medical History: No History, Except For Hx Hypertension: Yes Hx Asthma: Yes Hx Diabetes: Yes Hx Cancer: No Hx Gastrointestinal Problems: No Hx Neurological Problems: Yes Hx Seizures: Yes Review of Systems All Other Systems: negative except mentioned in HPI Physical Exam Vital Signs Date Time Temp Pulse Resp B/P (MAP) Pulse Ox O2 Delivery O2 Flow Rate FiO2 04/28/19 00:58 98.2 87 14 127/87 (100) 96 Room Air Sp02 EP Interpretation: reviewed, normal General Appearance: no apparent distress, alert, GCS 15, non-toxic Head: normocephalic, atraumatic Eyes: bilateral eye normal inspection, bilateral eye PERRL ENT: hearing grossly normal, normal pharynx, no angioedema, normal voice Neck: full range of motion, supple/symm/no masses Respiratory: chest non-tender, lungs clear, normal breath sounds, speaking full sentences Cardiovascular #1: regular rate, rhythm, no edema Cardiovascular #2: 2+ carotid (R), 2+ carotid (L), 2+ radial (R), 2+ radial (L) , 2+ dorsalis pedis (R), 2+ dorsalis pedis (L) Gastrointestinal: normal bowel sounds, non tender, soft, non-distended, no guarding, no rebound Rectal: deferred Genitourinary: normal inspection, no CVA tenderness Musculoskeletal: back normal, normal range of motion, gait/station normal, tender - R shoulder, R hip Neurologic: alert, motor strength/tone normal, oriented x3, sensory intact, responsive, speech normal Psychiatric: judgement/insight normal, memory normal, mood/affect normal, no suicidal/homicidal ideation Reflexes: 3+ bicep (R), 3+ bicep (L), 3+ tricep (R), 3+ tricep (L), 3+ knee (R) , 3+ knee (L) Lymphatic: no adenopathy Medical Decision Making Diagnostic Impression: Primary Impression: Contusion Qualified Codes: S40.011A - Contusion of right shoulder, initial encounter Additional Impression: Fall Qualified Codes: W19.XXXA - Unspecified fall, initial encounter ER Course Hospital Course 63 yo F presents to ED c/o R shoulder and R hip pain s/p fall Differential diagnoses include: Fracture, dislocation, sprain, contusion Clinical course Patient placed on stretcher. After initial history and physical, I ordered pain medications and Xrays of R shoulder/hip Xrays prelim read shows no acute fracture/dislocation. there is hardware in the R shoulder that appears intact Discussed findings with the patient. Pain overall improved. Will discharge to home. Safe for discharge for close outpatient follow-up. Diagnosis - contusion, fall Stable and discharged to home with prescription for tylenol. apply ice, keep elevated. weight bear as tolerated. Followup with PMD. Return to ED if symptoms recur or worsen Other X-Ray Diagnostic Results Other X-Ray Diagnostic Results #1: X-Ray ordered: R shoulder # of Views/Limited Vs Complete: 3 View Indication: Pain EP Interpretation: Yes Interpretation: no dislocation, no soft tissue swelling, no fractures, other - hardware in place Impression: No acute disease Electronically Signed by: Electronically signed by Heladio Smith MD Other X-Ray Diagnostic Results #2: X-Ray ordered: R hip # of Views/Limited Vs Complete: 3 View Indication: Pain EP Interpretation: Yes Interpretation: no dislocation, no soft tissue swelling, no fractures Impression: No acute disease Electronically Signed by: Electronically signed by Heladio Smith MD Last Vital Signs Date Time Temp Pulse Resp B/P (MAP) Pulse Ox O2 Delivery O2 Flow Rate FiO2 04/28/19 02:11 98.2 04/28/19 01:10 75 14 127/87 96 Room Air Status: improved Disposition: HOME, SELF-CARE Condition: Stable Scripts Acetaminophen* (TYLENOL EXTRA STRENGTH*) 500 Mg Tablet 500 MG ORAL Q8H PRN for Prn Headache/Temp > 101, #30 TAB 0 Refills Prov: Heladio Smith MD 04/28/19 Referrals: NOT CHOSEN [facility]/,REFERRING (PCP) Heladio Smith MD Apr 28, 2019 04:34
[2019-04-28 05:00] VITALS: BP 120/79
[2019-04-28] MEDS ORDERED: TYLENOL EXTRA500 MG ORAL (05:22)
[2019-04-28 05:45] VITALS: BP 119/76
--- NOTE | 2019-04-28 05:45 | NUR ---
ER DISCHARGE NOTE: Patient is cleared to be discharged per ERMD, pt is aox4, on room air, with stable vital signs. pt was given dc and prescription instructions, pt was able to verbalize understanding, pt id band removed. pt is able to ambulate with steady gait. pt took all belongings.
--- NOTE | 2019-04-28 15:31 | Diagnostic Imaging Report ---
Indication: Fell one day ago ago, pain in right shoulder Technique: 3 views of the right shoulder Comparison: 01/27/2019 Findings: Exam is somewhat limited due to the presence of overlying foreign bodies. Extensive surgical hardware is again seen reducing old healed right humeral neck fracture. The hardware appears intact. No definite acute fractures some heterotopic new bone is seen adjacent to the humeral head, also evident previously. No dislocations. The bones are osteoporotic chronic. Old healed right rib fractures are noted Impression: Somewhat limited exam, as described No definite acute bony trauma Postsurgical changes as described
--- NOTE | 2019-04-28 15:33 | Diagnostic Imaging Report ---
Indication: Pain after falling Technique: One view the pelvis, 2 views of the right hip Comparison: Pelvic radiograph dated 05/08/2019 Findings: Exam is somewhat limited as patient had obscures the left hip region. There is narrowing of the right hip joint space. No definite acute fractures or dislocations. Impression: Limited exam, as described No acute bony trauma. Note, however, that in elderly os chronic patient's, nonspecific pelvic fractures can easily be occult. Consider cross-sectional imaging if there is high clinical suspicion
== END 2019-04-28 05:45 | disposition home or self-care (01) ==
LOC: EMR 01:15
DX: S40.011A Contusion of right shoulder, initial encounter (principal); W01.0XXA Fall on same level from slipping, tripping and stumbling without subsequent striking against object, initial encounter; Y92.9 Unspecified place or not applicable; E11.9 Type 2 diabetes mellitus without complications; I10 Essential (primary) hypertension; G40.909 Epilepsy, unspecified, not intractable, without status epilepticus; M25.551 Pain in right hip
CPT/HCPCS: 73030; 73501; Z7502; 99284

== ENCOUNTER 2019-04-28 08:19 | Emergency (ER) | payer MEDICAID ==
[~2019-04-28 08:19] MED LIST changes: +TYLENOL EXTRA500 MG ORAL
--- NOTE | 2019-04-28 08:38 | NUR ---
ED Nurse Note: Patient left without being seen.
--- NOTE | 2019-04-28 13:00 | Emergency Room Report ---
History of Present Illness General Chief Complaint: To Be Triaged Present Illness Allergies: Coded Allergies: No Known Allergies (Unverified , 09/03/17) Nursing Documentation-PMH Hx Hypertension: Yes Hx Asthma: Yes Hx Diabetes: Yes Hx Cancer: No Hx Gastrointestinal Problems: No Hx Neurological Problems: Yes Hx Seizures: Yes Medical Decision Making Diagnostic Impression: Primary Impression: body pain ER Course Patient was reported to leave prior to being seen Status: other Disposition: LEFT W/OUT BEING SEEN Condition: Unknown Referrals: [facility],REFERRING (PCP) Jairo Fay DO Apr 28, 2019 13:00
== END 2019-04-28 09:00 | disposition left against medical advice (07) ==
LOC: EMR 08:25
DX: Z53.21 Procedure and treatment not carried out due to patient leaving prior to being seen by health care provider (principal)

== ENCOUNTER 2019-04-30 01:39 | Emergency (ER) | payer MEDICAID ==
[~2019-04-30] VITALS: Ht 167.6 cm; Wt 68.0 kg
--- NOTE | 2019-04-30 01:41 | NUR ---
ED Nurse Note: pt brought in by [employer] from a gas station c/o left side pain, per EMS report, pt was sleeping at the gas station and woke up with pain. pt states she was in the ED couple days ago for body pain as well. pt denies alcohol consumption nor drug use. vss, no sx resp distress, will cont monitor.
--- NOTE | 2019-04-30 01:50 | Emergency Room Report ---
History of Present Illness General Chief Complaint: Pain Source: Patient Present Illness HPI Patient is a 63-year-old female presents after increased left upper extremity pain. Patient reports having a recent injury. She did prior history of alcohol abuse. Previous he had seizures as well. She had a recent imaging of the areas of pain on prior visit approximately 3 days ago. She denies any fever. Allergies: Coded Allergies: No Known Allergies (Unverified , 09/03/17) Patient History Past Medical History: see triage record Reviewed Nursing Documentation: PMH: Agreed; PSxH: Agreed Nursing Documentation-PMH Past Medical History: No Stated History Hx Hypertension: Yes Hx Asthma: Yes Hx Diabetes: Yes Hx Cancer: No Hx Gastrointestinal Problems: No Hx Neurological Problems: Yes Hx Seizures: Yes Review of Systems All Other Systems: negative except mentioned in HPI Physical Exam Vital Signs Date Time Temp Pulse Resp B/P (MAP) Pulse Ox O2 Delivery O2 Flow Rate FiO2 04/30/19 01:35 98.6 86 18 146/82 (103) 98 Room Air Sp02 EP Interpretation: reviewed, normal General Appearance: normal inspection, alert, Chronically Ill Head: atraumatic ENT: normal ENT inspection, hearing grossly normal, normal voice Neck: normal inspection, supple, no bony tend, limited range of motion Respiratory: normal inspection, lungs clear, normal breath sounds, no respiratory distress, no retraction, no wheezing Cardiovascular #1: regular rate, rhythm, no edema Gastrointestinal: normal inspection, normal bowel sounds, non tender, soft, no guarding, no hernia Genitourinary: no CVA tenderness Musculoskeletal: normal inspection, back normal, normal range of motion Neurologic: alert, responsive, speech normal, normal inspection Psychiatric: normal inspection, judgement/insight normal, mood/affect normal Medical Decision Making Diagnostic Impression: Primary Impression: Alcohol abuse Additional Impressions: Pain of left side of body Seizure disorder ER Course Patient presented for left-sided body pain. Differential diagnosis include was not limited to arthritis, contusion, strain, among others. Patient was noted to have a recent x-ray imaging of the areas of discomfort. She appears to be somewhat intoxicated with alcohol. Patient was observed in the emergency department she was given oral pain medications. Patient appears to be stable for discharge. Last Vital Signs Date Time Temp Pulse Resp B/P (MAP) Pulse Ox O2 Delivery O2 Flow Rate FiO2 04/30/19 01:35 98.6 86 18 146/82 (103) 98 Room Air Status: improved Disposition: HOME, SELF-CARE Condition: Stable Maurice Tovar MD Apr 30, 2019 01:50
[2019-04-30 01:55] VITALS: BP 139/83
[2019-04-30] MEDS ORDERED: Thiamine 100mg tab ORAL ONE (02:15)
--- NOTE | 2019-04-30 02:40 | NUR ---
ED Nurse Note: Patient sleeping, calm, NAD. Will continue to monitor.
[2019-04-30 05:12] VITALS: BP 138/79
--- NOTE | 2019-04-30 05:12 | NUR ---
ER DISCHARGE NOTE: Patient is cleared to be discharged per ERMD, pt is aox4, on room air, with stable vital signs. pt was given dc and prescription instructions, pt refused to sign dc paper, pt id band removed without complications. pt is able to ambulate with steady gait. pt took all belongings.
[2019-04-30] MEDS ORDERED: ALBUTEROL SULF8.5 GM INH (22:47)
[2019-04-30] MEDS ORDERED: IBUPROFEN600 MG ORAL (22:47)
== END 2019-04-30 05:12 | disposition home or self-care (01) ==
LOC: EDBD 01:39 → EMR 02:15
DX: R52 Pain, unspecified (principal); F10.10 Alcohol abuse, uncomplicated; G40.909 Epilepsy, unspecified, not intractable, without status epilepticus; I10 Essential (primary) hypertension; J45.909 Unspecified asthma, uncomplicated; E11.9 Type 2 diabetes mellitus without complications; Y90.7 Blood alcohol level of 200-239 mg/100 ml
CPT/HCPCS: 99282

== ENCOUNTER 2019-04-30 16:14 | Emergency (ER) | payer MEDICAID ==
[~2019-04-30] VITALS: Ht 162.6 cm; Wt 62.1 kg
[2019-04-30 17:00] VITALS: BP 149/79
--- NOTE | 2019-04-30 17:00 | NUR ---
ED Nurse Note: PAtient walked in to ER c/o rt sided body pain pt has multiple complaint. No SOB. Afebrile. VSS.
[2019-04-30 17:53] VITALS: BP 149/79
--- NOTE | 2019-04-30 17:53 | NUR ---
ED Nurse Note: Pt cleared by ERMD for discharge. DC instructions was given and explained to pt and verbalized understanding of teachings. All medical deviecs such as ID band removed. Pt is AAO x4, ambulatory and left with all personal belongings.
--- NOTE | 2019-04-30 18:41 | Emergency Room Report ---
History of Present Illness General Chief Complaint: Pain Source: Patient Present Illness HPI Patient presents with reports that she had a fall from her chair Denies any headache denies any chest pain patient reports pain to her left shoulder and left hip area Denies any abdominal pain denies any back or flank pain denies any focal weakness Patient did present here with her walker that she uses Allergies: Coded Allergies: No Known Allergies (Unverified , 09/03/17) Patient History Past Medical History: see triage record Reviewed Nursing Documentation: PMH: Agreed; PSxH: Agreed Nursing Documentation-PMH Hx Hypertension: Yes Hx Asthma: Yes Hx Diabetes: Yes Hx Cancer: No Hx Gastrointestinal Problems: No Hx Neurological Problems: Yes Hx Seizures: Yes Review of Systems All Other Systems: negative except mentioned in HPI Physical Exam Vital Signs Date Time Temp Pulse Resp B/P (MAP) Pulse Ox O2 Delivery O2 Flow Rate FiO2 04/30/19 16:51 98.4 69 22 149/79 (102) 95 Room Air Sp02 EP Interpretation: reviewed, normal General Appearance: no apparent distress Head: normocephalic, atraumatic Eyes: bilateral eye PERRL ENT: hearing grossly normal, EOM grossly intact Neck: supple Respiratory: lungs clear, no respiratory distress, no retraction Cardiovascular #1: regular rate, rhythm Gastrointestinal: non tender, soft Musculoskeletal: other - Some reproducible discomfort palpation of the left shoulder otherwise moving upper extremity equally Neurologic: alert, oriented x3 Skin: no rash Lymphatic: no adenopathy Medical Decision Making Diagnostic Impression: Primary Impression: medical screening ER Course Patient has a fairly benign medical evaluation is awake moving all extremities appropriately patient has had several visits with reports of fall and Pain to different areas we have multiple imaging from previous presentations all within normal limits Given the benign medical evaluation and the patient's general exam she is stable for close outpatient follow-up Last Vital Signs Date Time Temp Pulse Resp B/P (MAP) Pulse Ox O2 Delivery O2 Flow Rate FiO2 04/30/19 17:53 98.4 77 22 149/79 95 Room Air Status: improved Disposition: HOME, SELF-CARE Condition: Stable Referrals: [facility] Sk[facility] Bowens [facility] Patient Instructions: Medical Screening Exam Additional Instructions: Patient is provided with the discharge instructions notified to follow up with primary doctor in the next 2-3 days otherwise return to the er with any worsening symptoms. Please note that this report is being documented using DRAGON technology. This can lead to erroneous entry secondary to incorrect interpretation by the dictating instrument. Jairo Fay DO Apr 30, 2019 18:41
[2019-04-30] MEDS ORDERED: ALBUTEROL SULF8.5 GM INH (22:47)
[2019-04-30] MEDS ORDERED: IBUPROFEN600 MG ORAL (22:47)
== END 2019-04-30 17:53 | disposition home or self-care (01) ==
LOC: EMR 16:49
DX: Z13.89 Encounter for screening for other disorder (principal); J45.909 Unspecified asthma, uncomplicated; E11.9 Type 2 diabetes mellitus without complications; G40.909 Epilepsy, unspecified, not intractable, without status epilepticus; W07.XXXA Fall from chair, initial encounter; Y93.9 Activity, unspecified; Y92.9 Unspecified place or not applicable
CPT/HCPCS: 99281

== ENCOUNTER 2019-04-30 20:57 | Emergency (ER) | payer MEDICAID ==
[~2019-04-30] VITALS: Ht 165.1 cm; Wt 54.4 kg
[2019-04-30 21:20] VITALS: BP 130/80
--- NOTE | 2019-04-30 21:20 | NUR ---
ED Nurse Note: PT walked in to ED for C/O generalized body pain and nausea. VSS.
[2019-04-30] MEDS ORDERED: Albuterol ud Inhalation HHN ONE (22:00)
--- NOTE | 2019-04-30 22:00 | NUR ---
ED Nurse Note: PT reaceiving breathing TX at bedside.
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
[2019-04-30] MEDS ORDERED: IBUPROFEN600 MG ORAL (22:47)
[2019-04-30] MEDS ORDERED: ALBUTEROL SULF8.5 GM INH (22:47)
[2019-04-30 23:52] VITALS: BP 122/72
--- NOTE | 2019-04-30 23:52 | NUR ---
ED Nurse Note: PT in bed resting with eles closed. appears to be sleeping. no acute distress is noted.
[2019-05-01 02:02] VITALS: BP 129/75
--- NOTE | 2019-05-01 02:02 | NUR ---
ED Nurse Note: PT SEEN IN BED RESTING WITH EYES CLOSED. NO ACUTE DISTRESS IS NOTED. PT APEPARS TO BE SLEEPING.
[2019-05-01 04:49] VITALS: BP 123/76
--- NOTE | 2019-05-01 04:49 | NUR ---
ED Nurse Note: pt seen in bed, awake. food and beveraged offered and provided. No acute distress is noted.
--- NOTE | 2019-05-01 05:15 | NUR ---
ED Nurse Note: Received report from ELAINE Andrews
--- NOTE | 2019-05-01 06:37 | NUR ---
ED Nurse Note: Pt calm and resting. Will continue to monitor.
[2019-05-01 06:38] VITALS: BP 123/76
--- NOTE | 2019-05-01 06:38 | NUR ---
ER DISCHARGE NOTE: Patient is cleared to be discharged per ERMD, pt is aox4, on room air, with stable vital signs. pt was given dc and prescription instructions, pt was able to verbalize understanding, pt id band removed without complications. pt is able to ambulate with steady gait. pt took all belongings.
== END 2019-05-01 06:38 | disposition home or self-care (01) ==
LOC: EMR 21:22
DX: R52 Pain, unspecified (principal); J98.01 Acute bronchospasm; I10 Essential (primary) hypertension; E11.9 Type 2 diabetes mellitus without complications; R56.9 Unspecified convulsions
CPT/HCPCS: 99284